=== PATIENT | male | born 1955 | race Caucasian/White ===

== ENCOUNTER 2025-05-16 02:18 | Inpatient (IN) ==
[2025-05-16] MEDS: KETOROLAC 15 MG/ML VIAL IVP STA (03:27)
[2025-05-16 03:29] LABS: HCT - HEMATOCRIT 37.1 % (42.0-52.0); HGB - HEMOGLOBIN 12.5 g/dL (14.0-18.0); MEAN PLATELET VOLUME 9.8 fL (7.4-11.4); NRBC ABSOLUTE COUNT (AUTO) 0.00 x10^3/uL; NUCLEATED RED BLOOD CELLS AUTO 0.0 /100WBC; PLT - PLATELET COUNT 145 10^3/uL (130-450); RED CELL DISTRIBUTION WIDTH 13.6 % (12.0-15.0)
[2025-05-16 03:44] LABS: ALT ALANINE AMINOTRANSFERASE 14.0 IU/L (10-60); AST ASPARTATE AMINOTRANSFERASE 15.0 IU/L (10-42); BUN - BLOOD UREA NITROGEN 25.0 mg/dL (6-20); CARBON DIOXIDE - CO2 24.0 mmol/L (21-32); CREATININE 1.3 mg/dL (0.6-1.3); GFR - MDRD 55.0 (>89)
[2025-05-16 03:53] LABS: GLUCOSE, URINE (UA) NEGATIVE (NEGATIVE); KETONES,URINE (UA) TRACE mg/dL (NEGATIVE); OCCULT BLOOD,URINE MODERATE (NEGATIVE)
[2025-05-16 04:10] LABS: SQUAMOUS EPITHELIAL CELL,UR FEW Squamous (<= Few)
[2025-05-16] MEDS: oxyCODONE 5 MG TABLET PO STA (06:40)
--- NOTE | 2025-05-16 07:29 | ED Physician Documentation ---
History of Present Illness Stated complaint Stated Complaint: back pain/nausea Chief complaint Chief Complaint: Back Pain Additonal information Additional information: 69-year-old male presenting with persistent back pain over the last few days, back spasms. States that he is having difficulty ambulating around his house, and has had trouble going up and down his stairs. He states that he and his are both concerned for his wellbeing considering his episodes of intractable pain. He states that they seem to come and go. Required EMS to bring him in today. He denies any traumatic history to his back, denies history of back pain prior to this. He denies fever, chills, chest pain, shortness of breath. States that when his pain is significant he does feel nauseous. Denies any abdominal pain. Seems to endorse left-sided flank pain as well, denies a chronic history of chronic obstruction, for which she follows with urology. Does endorse history of significant BPH. Denies any dysuria, other urination changes. Denies bowel movement problems. Denies cauda equina symptoms. Review of Systems Status of ROS: See HPI Meds/Allgy Home Medications Ambulatory Orders Medication Instructions Recorded Confirmed No Known Home Medications 05/16/2505/04 Allergies Allergies Allergy/AdvReac Type Severity Reaction Status Date / Time albumin colloid, human Allergy Severe Edema Verified 05/16/25 02:27 [facility] Active Problems All Active Problems (Updated 05/16/25 @ 07:29 by Asael Perea MD) Acute pain (Acute) Social History Social History Smoking Status: Smoker current status unk Level: Independent Do you feel safe in your home environment?: Yes History of physical, verbal, emotional, or financial abuse?: No Substance Use: cannabis (any form) Exam Exam Vital Signs: Vital Signs x48h Temp Pulse Resp BP Pulse Ox 05/16/25 07:40 59 L 18 118/67 95 05/16/25 06:26 56 L 18 111/61 93 05/16/25 02:24 36.6 C 62 18 123/69 98 Constitutional Appears moderately uncomfortable intermittently. Waves of pain. Intermittently writhing on bed. HENMT normocephalic Eyes PERRL and conjunctivae normal Neck/C-Spine visual inspection normal, cervical spine nontender, cervical full ROM noted and supple Respiratory breath sounds equal bilaterally, normal respiratory effort and no wheezes Cardiovascular normal heart rate noted, regular rhythm noted, no murmur and peripheral pulses 2+ throughout Gastrointestinal abdomen soft to palpation and nontender to palpation Genitourinary Left-sided CVA tenderness positive, no right sided CVA tenderness Back/Pelvis Tenderness to palpation in lower lumbar spine/sacral spine. No step-offs, no deformities, no overlying skin changes. Neurology GCS 15 Psychiatry mental status grossly normal and oriented x3 Results Vitals Vitals: Vital Signs - 24 hr 05/16/25 02:24 05/16/25 03:27 05/16/25 06:26 Temperature 36.6 C Temperature Source Temporal Artery Scan Pulse Rate 62 56 L Respiratory Rate 18 18 Blood Pressure 123/69 111/61 O2 Saturation 98 93 O2 Source Room air Room air Pain Intensity 10 10 2 05/16/25 06:40 05/16/25 07:40 05/16/25 08:04 Temperature Temperature Source Pulse Rate 59 L Respiratory Rate 18 Blood Pressure 118/67 O2 Saturation 95 O2 Source Room air Pain Intensity 8 7 7 05/16/25 08:05 Temperature Temperature Source Pulse Rate Respiratory Rate Blood Pressure O2 Saturation O2 Source Pain Intensity 7 Oxygen O2 Source Room air Labs Labs: Laboratory Tests 05/16/25 05/16/25 03:00 03:23 WBC 8.2 RBC 3.89 L Hgb 12.5 L Hct 37.1 L MCV 95.4 H MCH 32.1 H MCHC 33.7 RDW 13.6 Plt Count 145 MPV 9.8 Neut # (Auto) 6.8 H Lymph # (Auto) 0.7 L Lee # (Auto) 0.6 Eos # (Auto) 0.0 Baso # (Auto) 0.0 Absolute Nucleated RBC 0.00 Nucleated RBC % 0.0 Sodium 137 Potassium 4.2 Chloride 104 Carbon Dioxide 24 Anion Gap 9.0 BUN 25 H Creatinine 1.3 Estimated GFR (MDRD) 55 L Glucose 156 H Calcium 9.2 Total Bilirubin 1.2 H AST 15 ALT 14 Alkaline Phosphatase 97 Total Protein 6.5 Albumin 3.7 Globulin 2.8 Albumin/Globulin Ratio 1.3 Lipase 42 Urine Color YELLOW Urine Clarity HAZY Urine pH 6.0 Ur Specific [place] 1.025 Urine Protein TRACE Urine Glucose (UA) NEGATIVE Urine Ketones TRACE Urine Occult Blood MODERATE Urine Nitrite NEGATIVE Urine Bilirubin NEGATIVE Urine Urobilinogen 0.2 (NORMAL) Ur Leukocyte Esterase SMALL H Urine RBC 11-25 H Urine WBC 11-25 H Ur Squamous Epith Cells FEW Squamous Urine Bacteria Few Urine Mucus Few Strands Ur Microscopic Review INDICATED Urine Culture Comments INDICATED PD Medical Decision Making ED course ED course: Assessment: 6-year-old male presenting to the ER for second times week for intractable back pain, with waves of pain in his left flank, lumbar territory. He has never had symptoms like his before, but states that he is exasperated, and does not know what to do. He was discharged after evaluation from the ER yesterday with pain medications, but states that these have not helped. DDx: Includes was not limited to, sciatica, kidney stone, hydronephrosis, septic stone, UTI, lumbar disc herniation, musculoskeletal back pain, SI joint dysfunction, etc. Workup: CBC shows hemoglobin 12.5, no leukocytosis. CMP with BUN 25, T. bili of 1.2. Otherwise labs unremarkable. Urine studies with negative nitrites, small leukocyte esterase, presence of RBCs, presence of WBCs. CT lumbar spine shows areas of mild disc herniation L3-L4, L4-L5. No evidence of fracture, or other significantly acute injury. CT abdomen shows evidence of successful TIPS procedure, cholelithiasis. There is no evidence of renal infarct, renal stone, hydronephrosis. Treatment: Oxycodone 5 mg, Toradol 15 mg, Valium 5 mg Discussion: I do not have a convincing reason for this patient's pain based off of my imaging and workup today. However he is quite intractable, and despite multiple pain options, still has significant waves where patient appears very uncomfortable, and in pain. Muscle relaxer is not overly helpful, anti- inflammatories did not help very much. He does not have any focal neurologic deficits on my exam, though patient states that he cannot walk, and has significant concerns about returning home. Because of this and his repeat visit to the ER with persistence of symptoms yet to be explained, I discussed his presentation with hospitalist service, who will agree to admit him to obtain MRI to hopefully establish more definitive diagnosis. Additionally benefit of admission would be pain control. Patient was understanding of this and agreeable with plan moving forward. At time of my signout patient was in admission status awaiting transfer to the floor. He was signed out to Dr. Russ Briseno, at my signout. Discharge Plan Discharge Patient Disposition: [facility] DC/Xfer Condition: Good Clinical Impression: Acute pain Interventions: ED Admission Assessment Last Done: 05/16/25 08:19 Vitals documented within 30 minutes of discharge?: Yes
[2025-05-16] MEDS ORDERED: ONDANSETRON 4 MG/2 ML VIAL IVP PRN (08:02)
[2025-05-16] MEDS ORDERED: SODIUM CHLORIDE FLUSH 0.9% 10 ML SYRINGE IVP PRN (08:02)
[2025-05-16] MEDS: HYDROcod/ACETAM 5/325 MG TABLET PO PRN (08:43)
--- NOTE | 2025-05-16 09:32 | HISTORY & PHYSICAL EXAMINATION ---
Chief Complaint Chief Complaint Chief Complaint: Intractable back pain History of Present Illness Admitted From Admitted From:: Home History Obtained From Records Reviewed: EMR History obtained from: Patient Exam Limitations: None History of Present Illness HPI Comment/Other: Patient is a 69-year-old gentleman with a history of BPH, depression, chronic back pain, who presents with intractable back pain. He states it started about 2 days ago, and has progressed. It presents as intense spasms located in the midline of his back, with radiation over to the right or left side of his back. At times, it does present with numbness and tingling down his legs. It never radiates down towards the groin. He denies any bowel incontinence or saddle anesthesia. Prior to the onset of this intense back pain, he did have chronic back pain, which he states was relieved with Excedrin at home. He has never seen a neurologist, nor has he had any spinal or back surgeries in the past. Prior to the onset of this new acute pain, he states that he has been exceptionally active around the house. Him and his are remodeling a house, and they have been working on this for the past year. He does recall lifting some heavy wood prior to the onset of this knee pain. He presented initially a couple days ago, and then went home, and then returned again as the back pain persisted and became more severe and more frequent in nature. He has never had a kidney stone in the past. He has chronic urinary issues with BPH. He recently saw urology for this in the outpatient setting, and was prescribed medications for this. He still struggles with incomplete emptying, but these are chronic issues for him. He denies any fevers or chills. He denies shortness of breath. Other medical problems includes a history of atrial fibrillation on Eliquis. He has a pacemaker in place as well. 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 Diet: Regular, NPO at midnight Dispo: Likely home on discharge DVT: Eliquis Code: DNR, okay for intubation if temporary Meds/Allgy Home Medications Ambulatory Orders Medication Instructions Recorded Confirmed alfuzosin 10 mg tablet,extended 10 mg PO DAILY 5 05/16/25 release 24 hr Held on 05/16/25. Instructions: NEW RX HASN'T STARTED OF 05/16/25 allopurinol 100 mg tablet 100 mg PO QPM 05/16/2505/16 apixaban 5 mg tablet (Eliquis) 5 mg PO BID 05/16/25 atorvastatin 20 mg tablet 20 mg PO QPM 05/16/25 bupropion HCl 300 mg 24 hr tablet, 300 mg PO QPM 05/1605/16/25 extended release citalopram 10 mg tablet 10 mg PO QPM 05/16/25 metoprolol succinate 50 mg 50 mg PO BID 05/16/2505/16 tablet,extended release 24 hr prazosin 1 mg capsule 1 mg PO QPM 05/16/25 5 Allergies Allergies Allergy/AdvReac Type Severity Reaction Status Date / Time albumin colloid, human Allergy Severe Edema Verified 05/16/25 02:27 [facility] Active Problems All Active Problems (Updated 05/17/25 @ 13:13 by Myron Adams MD) Atrial fibrillation (Chronic) Depression (Chronic) BPH (benign prostatic hyperplasia) (Acute) Intractable back pain (Acute) Acute pain (Acute) Social History Social History Smoking Status: Smoker current status unk Level: Independent Do you feel safe in your home environment?: Yes History of physical, verbal, emotional, or financial abuse?: No Substance Use: cannabis (any form) POLST Patient has POLST: No POLST CPR Status: Do Not Attempt Resuscitation (DNAR) / Allow Natural Review of Systems Constitutional Denies: Fatigue, Fever, Chills, Malaise, Weakness or Poor appetite Eyes Denies: Pain, Irritation, Blurry vision, Vision loss, Diplopia or Eye discomfort Ears, nose, mouth, and throat Denies: Ear pain, Hearing loss, Tinnitus, Nose bleeds, Nasal discharge, Mouth lesions, Bleeding gums or Neck pain Cardiovascular Denies: Irregular heart rate, chest pain, palpitations, edema, Syncope or shortness of breath with exertion Respiratory Denies: Shortness of breath, Cough, Sputum production or Wheezing Gastrointestinal Denies: Abdominal pain, Abdominal distention, Nausea, Vomiting, Heartburn, Diarrhea or Constipation Genitourinary Denies: Painful urination, Urinary frequency or Urinary urgency Musculoskeletal Denies: Back pain, Neck pain, Extremity pain, Extremity swelling or Joint pain Integumentary/Breast Denies: Rash, Itching, Dryness, Redness or Skin pain Neurological Denies: Headache, General weakness, Weakness in extremities, Numbness in extremities, Abnormal gait or Dizziness Psychiatric Denies: Depression, Anxiety, Mood swings or Panic attacks Endocrine Denies: Excessive urination, Excessive thirst or Fatigue Hematologic/Lymphatic Denies: Anemia, Easy bruising or Easy bleeding Allergic/Immunologic Denies: Hives, Tongue swelling, Facial swelling or Wheezing Exam Exam Vital Signs: Vital Signs x48h Temp Pulse Resp BP Pulse Ox 05/17/25 08:05 97.9 F 62 18 135/76 H 92 05/17/25 05:32 97.7 F 61 18 138/76 H 92 Conclusion/Plan Problem List (1) Intractable back pain: Plan: Patient presented with severe and intractable back pain. Lumbar spine CT does show moderate degenerative disc disease, prominent at the lumbosacral junction. Abdomen/pelvis CT shows 1.8 x 1.1 cm stone at the left ureteropelvic junction with some periureteral inflammation noted. Pain is described as intermittent and severe. There is radiation down the legs, as well as towards the front, the stomach. It is localized in the midline with radiation bilaterally. Unclear if this is MSK pain versus pain from this renal stone. At this time, continue pain control with scheduled NSAIDs, ibuprofen 600 every 6 hours. Continue antispasmodic as needed for cramping, baclofen 10 mg 3 times daily. Continue morphine for severe pain, [place] for moderate pain. No urological services until Sunday. This pain may be attributed to this renal stone, which due to symptoms and size may need to be removed. Spoke with urology, and they will consult on this patient then if patient is still here. In the meantime, if pain is not controlled, we will try to transfer the patient to a facility with urology. (2) BPH (benign prostatic hyperplasia): Plan: Continue home medication, prazosin. Bladder protocol in place, patient does have a history of retaining urine and has had to be straight catheterized in the past. No saddle anesthesia, bowel incontinence. Patient has a long and chronic history of urinary issues. Qualifiers: Lower urinary tract symptom detail: unspecified Lower urinary tract symptom presence: symptoms present Qualified Code(s): N40.1 - Benign prostatic hyperplasia with lower urinary tract symptoms (3) Depression: Plan: Continue home citalopram and Wellbutrin. Qualifiers: Depression Type: unspecified Qualified Code(s): F32.A - Depression, unspecified (4) Atrial fibrillation: Plan: Continue patient's home Eliquis, metoprolol. Qualifiers: Atrial fibrillation type: unspecified Qualified Code(s): I48.91 - Unspecified atrial fibrillation Lab Results Lab results reviewed: Yes 05/17/25 04:20 05/17/25 04:20 Diagnostic Imaging Results Diagnostic Imaging Results: positive Final report reviewed Core Measures Anticipated LOS I expect patient to be DC'd or transferred within 96 hours.: Yes DVT/VTE - Prophylaxis VTE/DVT Device ordered at admit?: No Not Ordered - Medical Reason: Not indicated VTE/DVT Prophylaxis med ordered at admit?: Yes
[2025-05-16] MEDS: SODIUM CHLORIDE FLUSH 0.9% 10 ML SYRINGE IVP SCH (10:06)
--- NOTE | 2025-05-16 10:11 | PHARMACY PROGRESS NOTE ---
Best Possible Medication History Admit Date and Time: 05/16/25 275002 Home Medications Medication Instructions Recorded Confirmed Type alfuzosin 10 mg tablet,extended 10 mg PO DAILY 5 05/16/25 History release 24 hr Held on 05/16/25. Instructions: NEW RX HASN'T STARTED OF 05/16/25 allopurinol 100 mg tablet 100 mg PO QPM 05/16/2505/16 History apixaban 5 mg tablet (Eliquis) 5 mg PO BID 05/16/25 History atorvastatin 20 mg tablet 20 mg PO QPM 05/16/25 History bupropion HCl 300 mg 24 hr tablet, 300 mg PO QPM 05/1605/16/25 History extended release citalopram 10 mg tablet 10 mg PO QPM 05/16/25 History metoprolol succinate 50 mg 50 mg PO BID 05/16/2505/16 History tablet,extended release 24 hr prazosin 1 mg capsule 1 mg PO QPM 05/16/25 5 History Processed by: Pharmacy Medications reviewed in ED?: No Medication History completed: Yes Patient Interview: Completed Secondary Source(s): Prescription bottles, Spouse/Significant other, Pharmacy records and Insurance records [facility] Statement: As the person ultimately responsible for medication therapy, providers are able to order a medication from an existing home medication list in [facility] via the "Reconcile Routine" prior to Confirmation of that medication by computer network support specialist. Such practice is discouraged except when the physician, in their clinical judgment, deems that a medical need exists for a medication without regard to previous use.
[2025-05-16] MEDS: BACLOFEN 10 MG TABLET PO PRN (10:37)
--- NOTE | 2025-05-16 10:46 | CT Report ---
PROCEDURE: CT Abdomen/Pelvis WO INDICATIONS: concern for kidney stone TECHNIQUE: A CT scan of the abdomen and pelvis was performed without the use of intravenous contrast. Images were recorded and evaluated at appropriate window settings. Reformats: coronal and sagittal. For radiation dose reduction, the following was used: automated exposure control, adjustment of mA and/or kV according to patient size. COMPARISON: None. FINDINGS: Image quality: Diagnostic. Lower chest: Unremarkable. Liver: Cirrhotic without contour-deforming mass. TIPS shunt in place. Gallbladder: Multiple calcified stones without wall thickening or pericholecystic fluid. Contrast in the gallbladder is consistent with vicarious excretion from prior contrast administration. Biliary tree: No intrahepatic or extrahepatic dilation, accounting for age. Spleen: No splenomegaly. Pancreas: No pancreatic ductal dilation. Adrenals: No adrenal nodule. Kidneys and ureters: No hydronephrosis. No contour-deforming mass. Minimal contrast is present in the collecting system and proximal ureters. There is a 1.8 x 1.1 cm rounded stone at the left ureteropelvic junction. No other stone is identified. Stomach, bowel and peritoneum: No gastric or small bowel dilation. No abnormal wall thickening. Lymph nodes: No central or retroperitoneal adenopathy. Vessels: No infrarenal aortic aneurysm. Reproductive organs: A penile implant is in place. There is a small fluid collection without rim enhancement extending from the proximal right inguinal canal into the pelvis about the right-sided pump.. Bladder: No abnormal bladder wall thickening. No calcified bladder stones. Pelvic lymph nodes: No adenopathy by size criteria. Bones: No aggressive osseous abnormality. See same-day lumbar spine report. Other: No significant ventral or inguinal hernia. IMPRESSION: Left ureteropelvic junction stone without evidence of obstruction. Mild left periureteral inflammation on the left. Correlate with urinalysis. Right pelvic fluid collection extending into the proximal inguinal canal adjacent to the implant component. There is no associated inflammation to suggest an infectious component, although this is not excluded. Reviewed by: Navya Perales MD on 05/16/2025 9:45 AM R[facility]EL Approved by: Navya Perales MD on 05/16/2025 9:45 AM [facility] Station ID: [id number]
--- NOTE | 2025-05-16 10:49 | CT Report ---
PROCEDURE: CT Lumbar Spine WO INDICATIONS: significant lumbar back pain TECHNIQUE: Noncontrast images acquired from the T12 level to the sacrum. Sagittal and coronal reformats were constructed. For radiation dose reduction, the following was used: automated exposure control, adjustment of mA and/or kV according to patient size. COMPARISON: Same day abdomen and pelvis CT. FINDINGS: Image quality: Excellent. Bones: There is normal bony alignment. Mild dextrocurvature is likely positional. No acute vertebral body compression fractures. No suspicious lytic or blastic bony lesions. Central spinal caliber is of normal overall caliber. No pars defects. Disc space narrowing with osteophytosis is seen at the lumbosacral junction with a likely component of disc herniation. Mild osteophytes are seen throughout the remainder of the lumbar spine. Soft tissues: The same day abdomen/pelvis CT report. IMPRESSION: Mild to moderate degenerative disc disease, most prominent at the lumbosacral junction. No acute osseous abnormality. Reviewed by: Navya Perales MD on 05/16/2025 9:47 AM [facility] Approved by: Navya Perales MD on 05/16/2025 9:47 AM R[facility]HAEL Station ID: [id number]
[2025-05-16] MEDS: diazePAM INJ 5 MG/ML SYRINGE IVP ONE (12:14)
[2025-05-16] MEDS: IBUPROFEN 600 MG TABLET PO SCH (12:14)
[2025-05-16] MEDS: LACTATED RINGERS 1,000 ML IV SCH (12:15)
[2025-05-16] MEDS: MORPHINE 2 MG/ML CARPUJECT IVP PRN (15:00)
[2025-05-16] MEDS: ACETAMINOPHEN 325 MG TABLET PO PRN (17:38)
[2025-05-16] MEDS: APIXABAN 5 MG TABLET PO SCH (22:26)
[2025-05-16] MEDS: CITALOPRAM 10 MG TABLET PO SCH (22:26)
[2025-05-16] MEDS: ATORVASTATIN 10 MG TABLET PO SCH (22:28)
[2025-05-16] MEDS: PRAZOSIN 1 MG CAPSULE PO SCH (22:30)
[2025-05-16] MEDS: METOPROLOL SUCCINATE 50 MG TABLET PO SCH (22:32)
[2025-05-17 04:26] LABS: HCT - HEMATOCRIT 35.1 % (42.0-52.0); HGB - HEMOGLOBIN 11.7 g/dL (14.0-18.0); MEAN PLATELET VOLUME 9.6 fL (7.4-11.4); PLT - PLATELET COUNT 112.0 10^3/uL (130-450); RED CELL DISTRIBUTION WIDTH 13.7 % (12.0-15.0)
[2025-05-17 04:47] LABS: BUN - BLOOD UREA NITROGEN 25.0 mg/dL (6-20); CARBON DIOXIDE - CO2 27.0 mmol/L (21-32); CREATININE 1.3 mg/dL (0.6-1.3); GFR - MDRD 55.0 (>89)
[2025-05-17] MEDS: SENNA 8.6 MG TABLET PO SCH (08:13)
[2025-05-17] MEDS ORDERED: ENOXAPARIN 40 MG/0.4 ML SYRINGE SUBQ SCH (09:00)
[2025-05-17] MEDS: BISACODYL 10 MG SUPP PR STA (12:04)
--- NOTE | 2025-05-17 12:35 | PROVIDER PROGRESS NOTE ---
Subjective Subjective Subjective: Patient is feeling better today. He feels like his pain is under much better control with the scheduled Motrin. He only required the IV morphine once in the last 24 hours. He is still having the episodes of intermittent sharp pain, but they are decreasing in frequency. He denies any fevers or chills. Overnight, he continued to have urinary incontinence and retention, and a urinary catheter was placed. Diet: Regular, NPO at midnight for planned urological procedure Dispo: Likely home on discharge DVT: Eliquis Code: DNR, afuaay for intubation if temporary Current Medications Current Medications Current Medications: Current Medications Generic Name Dose Route Start Last Admin Trade Name Freq PRN Reason Stop Dose Admin Acetaminophen 650 mg 05/16/25 08:02 05/16/25 17:38 Acetaminophen 325 Mg Tablet PO 650 mg Q4HR PRN Administration Pain 1 to 4, or Fever Hydrocodone Bitart/Acetaminophen 1 tab 05/16/25 08:02 05/17/25 03:50 Hydrocod/Acetam 5/325 Mg Tablet PO 1 tab Q4HR PRN Administration Pain 5 to 7 Allopurinol 100 mg 05/16/25 21:00 05/16/25 22:28 Allopurinol 100 Mg Tablet PO 100 mg QPM KARON Administration Amoxicillin 500 mg 05/17/25 14:00 Amoxicillin 250 Mg Capsule PO TID KARON Apixaban 5 mg 05/16/25 21:00 05/17/25 08:13 Apixaban 5 Mg Tablet PO 5 mg BID KARON Administration Atorvastatin Calcium 20 mg 05/16/25 21:00 05/16/25 22:28 Atorvastatin 10 Mg Tablet PO 20 mg QPM KARON Administration Baclofen 10 mg 05/16/25 09:48 05/17/25 08:13 Baclofen 10 Mg Tablet PO 10 mg TID PRN Administration spasm Bupropion HCl 300 mg 05/16/25 21:00 05/16/25 22:27 Bupropion Xl 150 Mg Tablet PO 300 mg QPM KARON Administration Citalopram Hydrobromide 10 mg 05/16/25 21:00 05/16/25 22:26 Citalopram 10 Mg Tablet PO 10 mg QPM KARON Administration Lactated Ringer's 1,000 mls @ 83.333 mls/hr 05/16/25 13:00 05/17/25 12:04 Lr IV 83.3 mls/hr .Q12H KARON Administration Ibuprofen 600 mg 05/16/25 12:00 05/17/25 11:30 Ibuprofen 600 Mg Tablet PO 600 mg Q6HR KARON Administration Metoprolol Succinate 50 mg 05/16/25 21:00 05/17/25 08:13 Metoprolol Succinate 50 Mg Tablet PO 50 mg BID KARON Administration Morphine Sulfate 2 mg 05/16/25 13:38 05/16/25 18:59 Morphine 2 Mg/Ml Carpuject IVP 2 mg Q4HR PRN Administration Severe Pain (Level 7-10) Ondansetron HCl 4 mg 05/16/25 08:02 Ondansetron Odt 4 Mg Tablet TL Q6HR PRN Nausea / Vomiting Ondansetron HCl 4 mg 05/16/25 08:02 Ondansetron 4 Mg/2 Ml Vial IVP Q6HR PRN Nausea / Vomiting Polyethylene Glycol 17 gm 05/16/25 17:00 05/17/25 08:13 Polyethylene Glycol 3350 17 Gm Packet PO 17 gm DAILY KARON Administration Prazosin HCl 1 mg 05/16/25 21:00 05/16/25 22:30 Prazosin 1 Mg Capsule PO 1 mg QPM KARON Administration Senna 17.2 - 25.8 mg 05/17/25 08:00 05/17/25 08:13 Senna 8.6 Mg Tablet PO 05/18/25 02:01 17.2 mg Q6H KARON Administration Sodium Chloride 10 ml 05/16/25 08:02 Sodium Chloride Flush 0.9% 10 Ml Syringe IVP PRN PRN NEEDED PER PROVIDER ORDERS Sodium Chloride 10 ml 05/16/25 09:00 05/17/25 08:14 Sodium Chloride Flush 0.9% 10 Ml Syringe IVP 10 ml 0100,[id number],1700 KARON Administration Objective Vital Signs/Intake & Output Reviewed Vital Signs: Yes Vital Signs: Vital Signs x48h Temp Pulse Resp BP Pulse Ox 05/17/25 08:05 97.9 F 62 18 135/76 H 92 05/17/25 05:32 97.7 F 61 18 138/76 H 92 Intake & Output: Intake & Output 05/14/25 05/15/25 05/16/25 05/17/25 23:59 23:59 23:59 23:59 Intake Total 900 / 900 1983 Output Total 835 / 835 1000 / 1000 Balance 65 / 65 984 / 984 Weight (kg) 105.5 kg Objective General Appearance: positive No acute distress and Alert; negative Anxious Eyes Bilateral: positive Normal inspection, PERRL and EOMI ENT: positive ENT inspection nml, Pharynx nml and No signs of dehydration Neck: positive Nml inspection, Thyroid nml and No JVD Respiratory: positive Chest non-tender, No respiratory distress and Breath sounds nml; negative Wheezes, Rales or Rhonchi Cardiovascular: positive No murmur, No gallop and Irregularly irregular; negative Tachycardia or Systolic murmur Abdomen: positive Non-tender, No organomegaly and No distention; negative Guarding or Splenomegaly Back: positive Nml inspection; negative CVA tenderness (R) or CVA tenderness (L) Skin: positive Color nml, No rash, Warm and Dry Extremities: positive Non-tender, Full ROM, Nml appearance and No pedal edema Neurologic/Psychiatric: positive Oriented x3, Motor nml and Mood/affect nml Comments/Other: No point tenderness noted no paraspinal muscle tenderness noted, Wan sign negative bilaterally; straight leg test negative bilaterally Lab Results 05/17/25 04:20 05/17/25 04:20 Other Labs: Lab Results x24hrs 05/17/25 Range/Units 04:20 WBC 6.0 (4.8-10.8) x10^3/uL RBC 3.63 L (4.70-6.10) 10^6/uL Hgb 11.7 L (14.0-18.0) g/dL Hct 35.1 L (42.0-52.0) % MCV 96.7 H (80.0-94.0) fL MCH 32.2 H (27.0-31.0) pg MCHC 33.3 (32.0-36.0) g/dL RDW 13.7 (12.0-15.0) % Plt Count 112 L (130-450) 10^3/uL MPV 9.6 (7.4-11.4) fL Sodium 138 (135-145) mmol/L Potassium 3.8 (3.5-4.5) mmol/L Chloride 104 (101-111) mmol/L Carbon Dioxide 27 (21-32) mmol/L Anion Gap 7.0 (6-13) BUN 25 H (6-20) mg/dL Creatinine 1.3 (0.6-1.3) mg/dL Estimated GFR (MDRD) 55 L (>89) Glucose 137 H (74-104) mg/dL Calcium 8.5 (8.5-10.3) mg/dL Magnesium 1.8 (1.7-2.3) mg/dL Assessment/Plan Problem List (1) Intractable back pain: Impression: Patient presented with severe and intractable back pain. Lumbar spine CT does show moderate degenerative disc disease, prominent at the lumbosacral junction. Abdomen/pelvis CT shows 1.8 x 1.1 cm stone at the left ureteropelvic junction with some periureteral inflammation noted. Pain is described as intermittent and severe. There is radiation down the legs, as well as towards the front, the stomach. It is localized in the midline with radiation bilaterally. Unclear if this is MSK pain versus pain from this renal stone. At this time, continue pain control with scheduled NSAIDs, ibuprofen 600 every 6 hours. Continue antispasmodic as needed for cramping, baclofen 10 mg 3 times daily. Continue morphine for severe pain, [place] for moderate pain. No urological services until Sunday. This pain may be attributed to this renal stone, which due to symptoms and size may need to be removed. Spoke with urology, and they will consult on this patient then. (2) Renal stone: Impression: Abdomen/pelvis CT shows 1.8 x 1.1 cm stone at the left ureteropelvic junction with some periureteral inflammation noted. Plan for urology consultation tomorrow morning. Hold evening and morning Eliquis doses, n.p.o. at midnight in case of procedure. (3) Enterococcus UTI: Impression: Urine culture growing Enterococcus. Patient did require urinary catheter placement overnight for incontinence. He does not have any dysuria, but he does have feelings of incomplete emptying and incontinence. Will treat as a simple cystitis with 5 days of amoxicillin 500 mg 3 times daily, especially with planned urological procedure. (4) Acute urinary retention: Impression: Overnight, patient was retaining over 400 cc of urine. Urinary catheter was placed. Urology has been consulted. (5) BPH (benign prostatic hyperplasia): Impression: Continue home medication, prazosin. Qualifiers: Lower urinary tract symptom detail: unspecified Lower urinary tract symptom presence: symptoms present Qualified Code(s): N40.1 - Benign prostatic hyperplasia with lower urinary tract symptoms (6) Depression: Impression: Continue home citalopram and Wellbutrin. Qualifiers: Depression Type: unspecified Qualified Code(s): F32.A - Depression, unspecified (7) Atrial fibrillation: Impression: Continue patient's home Eliquis, metoprolol. Qualifiers: Atrial fibrillation type: unspecified chronic Qualified Code(s): I48.20 - Chronic atrial fibrillation, unspecified
[2025-05-17] MEDS: AMOXICILLIN 250 MG CAPSULE PO SCH (14:13)
[2025-05-18 05:18] LABS: HCT - HEMATOCRIT 34.2 % (42.0-52.0); HGB - HEMOGLOBIN 11.9 g/dL (14.0-18.0); MEAN PLATELET VOLUME 10.3 fL (7.4-11.4); PLT - PLATELET COUNT 139.0 10^3/uL (130-450); RED CELL DISTRIBUTION WIDTH 13.4 % (12.0-15.0)
[2025-05-18 05:33] LABS: BUN - BLOOD UREA NITROGEN 18.0 mg/dL (6-20); CARBON DIOXIDE - CO2 26.0 mmol/L (21-32); CREATININE 1.0 mg/dL (0.6-1.3); GFR - MDRD 74.0 (>89)
--- NOTE | 2025-05-18 07:34 | PROVIDER PROGRESS NOTE ---
Subjective Subjective Subjective: Patient is frustrated at his level of pain. He is looking forward to pain relief after ureteral stent placement. He only required the IV morphine once in the last 24 hours. He is still having the episodes of intermittent sharp pain, but they are decreasing in frequency. He denies any fevers or chills. Yesterday, he continued to have urinary incontinence and retention, and a urinary catheter was placed. Diet: NPO currently for procedure today; can resume regular diet after Dispo: Likely home on discharge DVT: Eliquis (held this A.M. for procedure) Code: DNR, okay for intubation if temporary Current Medications Current Medications Current Medications: Current Medications Generic Name Dose Route Start Last Admin Trade Name Freq PRN Reason Stop Dose Admin Acetaminophen 650 mg 05/16/25 08:02 05/16/25 17:38 Acetaminophen 325 Mg Tablet PO 650 mg Q4HR PRN Administration Pain 1 to 4, or Fever Hydrocodone Bitart/Acetaminophen 1 tab 05/16/25 08:02 05/17/25 21:12 Hydrocod/Acetam 5/325 Mg Tablet PO 1 tab Q4HR PRN Administration Pain 5 to 7 Allopurinol 100 mg 05/16/25 21:00 05/17/25 21:10 Allopurinol 100 Mg Tablet PO 100 mg QPM KARON Administration Amoxicillin 500 mg 05/17/25 14:00 05/18/25 05:39 Amoxicillin 250 Mg Capsule PO 500 mg TID KARON Administration Atorvastatin Calcium 20 mg 05/16/25 21:00 05/17/25 21:12 Atorvastatin 10 Mg Tablet PO 20 mg QPM KARON Administration Baclofen 10 mg 05/16/25 09:48 05/17/25 23:47 Baclofen 10 Mg Tablet PO 10 mg TID PRN Administration spasm Bupropion HCl 300 mg 05/16/25 21:00 05/17/25 21:10 Bupropion Xl 150 Mg Tablet PO 300 mg QPM KARON Administration Citalopram Hydrobromide 10 mg 05/16/25 21:00 05/17/25 21:10 Citalopram 10 Mg Tablet PO 10 mg QPM KARON Administration Lactated Ringer's 1,000 mls @ 83.333 mls/hr 05/16/25 13:00 05/17/25 23:50 Lr IV 83.3 mls/hr .Q12H KARON Administration Ibuprofen 600 mg 05/16/25 12:00 05/18/25 05:39 Ibuprofen 600 Mg Tablet PO 600 mg Q6HR KARON Administration Metoprolol Succinate 50 mg 05/16/25 21:00 05/17/25 21:11 Metoprolol Succinate 50 Mg Tablet PO 50 mg BID KARON Administration Morphine Sulfate 2 mg 05/16/25 13:38 05/17/25 23:48 Morphine 2 Mg/Ml Carpuject IVP 2 mg Q4HR PRN Administration Severe Pain (Level 7-10) Ondansetron HCl 4 mg 05/16/25 08:02 Ondansetron Odt 4 Mg Tablet TL Q6HR PRN Nausea / Vomiting Ondansetron HCl 4 mg 05/16/25 08:02 Ondansetron 4 Mg/2 Ml Vial IVP Q6HR PRN Nausea / Vomiting Polyethylene Glycol 17 gm 05/16/25 17:00 05/17/25 08:13 Polyethylene Glycol 3350 17 Gm Packet PO 17 gm DAILY KARON Administration Prazosin HCl 1 mg 05/16/25 21:00 05/17/25 21:12 Prazosin 1 Mg Capsule PO 1 mg QPM KARON Administration Sodium Chloride 10 ml 05/16/25 08:02 Sodium Chloride Flush 0.9% 10 Ml Syringe IVP PRN PRN NEEDED PER PROVIDER ORDERS Sodium Chloride 10 ml 05/16/25 09:00 05/17/25 23:50 Sodium Chloride Flush 0.9% 10 Ml Syringe IVP 10 ml 0100,0900,1700 KARON Administration Objective Vital Signs/Intake & Output Reviewed Vital Signs: Yes Vital Signs: Vital Signs x48h Temp Pulse Resp BP Pulse Ox 05/17/25 08:05 97.9 F 62 18 135/76 H 92 05/17/25 05:32 97.7 F 61 18 138/76 H 92 Intake & Output: Intake & Output 05/15/25 05/16/25 05/17/25 05/18/25 23:59 23:59 23:59 23:59 Intake Total 900 / 900 2964 / 2964 Output Total 835 / 835 2375 / 2375 750 / 750 Balance 65 / 65 589 / 589 -750 / -750 Weight (kg) 105.5 kg Objective General Appearance: positive No acute distress and Alert; negative Anxious Eyes Bilateral: positive Normal inspection, PERRL and EOMI ENT: positive ENT inspection nml, Pharynx nml and No signs of dehydration Neck: positive Nml inspection, Thyroid nml and No JVD Respiratory: positive Chest non-tender, No respiratory distress and Breath sounds nml; negative Wheezes, Rales or Rhonchi Cardiovascular: positive No murmur, No gallop and Irregularly irregular; negative Tachycardia or Systolic murmur Abdomen: positive Non-tender, No organomegaly and No distention; negative Guarding or Splenomegaly Back: positive Nml inspection; negative CVA tenderness (R) or CVA tenderness (L) Skin: positive Color nml, No rash, Warm and Dry Extremities: positive Non-tender, Full ROM, Nml appearance and No pedal edema Neurologic/Psychiatric: positive Oriented x3, Motor nml and Mood/affect nml Comments/Other: No point tenderness noted no paraspinal muscle tenderness noted, Wan sign negative bilaterally; straight leg test negative bilaterally Lab Results 05/18/25 04:16 05/18/25 04:16 Other Labs: Lab Results x24hrs 05/18/25 Range/Units 04:16 WBC 5.4 (4.8-10.8) x10^3/uL RBC 3.62 L (4.70-6.10) 10^6/uL Hgb 11.9 L (14.0-18.0) g/dL Hct 34.2 L (42.0-52.0) % MCV 94.5 H (80.0-94.0) fL MCH 32.9 H (27.0-31.0) pg MCHC 34.8 (32.0-36.0) g/dL RDW 13.4 (12.0-15.0) % Plt Count 139 (130-450) 10^3/uL MPV 10.3 (7.4-11.4) fL Sodium 137 (135-145) mmol/L Potassium 4.1 (3.5-4.5) mmol/L Chloride 106 (101-111) mmol/L Carbon Dioxide 26 (21-32) mmol/L Anion Gap 5.0 L (6-13) BUN 18 (6-20) mg/dL Creatinine 1.0 (0.6-1.3) mg/dL Estimated GFR (MDRD) 74 L (>89) Glucose 132 H (74-104) mg/dL Calcium 8.6 (8.5-10.3) mg/dL Magnesium 1.8 (1.7-2.3) mg/dL Assessment/Plan Problem List (1) Intractable back pain: Impression: Patient presented with severe and intractable back pain. Lumbar spine CT does show moderate degenerative disc disease, prominent at the lumbosacral junction. Abdomen/pelvis CT shows 1.8 x 1.1 cm stone at the left ureteropelvic junction with some periureteral inflammation noted. Pain is described as intermittent and severe. There is radiation down the legs, as well as towards the front, the stomach. It is localized in the midline with radiation bilaterally. Unclear if this is MSK pain versus pain from this renal stone. At this time, continue pain control with scheduled NSAIDs, ibuprofen 600 every 6 hours. Continue antispasmodic as needed for cramping, baclofen 10 mg 3 times daily. Continue morphine for severe pain, [place] for moderate pain. Urology spoken withplan for ureteral stent today, and then repeat procedure in 1 to 2 weeks to remove large stone. Stent should provide pain relief. Likely will monitor overnight, and discharge home tomorrow if pain is controlled. (2) Renal stone: Impression: Abdomen/pelvis CT shows 1.8 x 1.1 cm stone at the left ureteropelvic junction with some periureteral inflammation noted. Urology spoken withplan for ureteral stent today, and then repeat procedure in 1 to 2 weeks to remove large stone. Hold Eliquis dose this a.m., n.p.o. currently for procedure. (3) Enterococcus UTI: Impression: Urine culture growing Enterococcus, thompson-sensitive. Patient did require urinary catheter placement overnight for incontinence. He does not have any dysuria, but he does have feelings of incomplete emptying and incontinence. Will treat as a simple cystitis with 5 days of amoxicillin 500 mg 3 times daily, especially with planned urological procedure. (4) Acute urinary retention: Impression: Patient was retaining over 400 cc of urine. Urinary catheter was placed. Urology is following, may need to be discharged with [place] in place. (5) BPH (benign prostatic hyperplasia): Impression: Continue home medication, prazosin. Qualifiers: Lower urinary tract symptom detail: unspecified Lower urinary tract symptom presence: symptoms present Qualified Code(s): N40.1 - Benign prostatic hyperplasia with lower urinary tract symptoms (6) Depression: Impression: Continue home citalopram and Wellbutrin. Qualifiers: Depression Type: unspecified Qualified Code(s): F32.A - Depression, unspecified (7) Atrial fibrillation: Impression: Continue patient's home Eliquis, metoprolol. 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
--- NOTE | 2025-05-18 13:46 | HISTORY & PHYSICAL EXAMINATION ---
Chief Complaint Chief Complaint Chief Complaint: left flank pain History of Present Illness Admitted From Admitted From:: er History Obtained From Records Reviewed: emr History obtained from: patient Exam Limitations: none History of Present Illness HPI Comment/Other: 69yo M well known to me with hx of IPP by myself, now with left flank pain. Found to have 1.8cm left UPJ stone. Admitted for pain control. No other vitals concerning Colonoscopy Questionnaire In the last 30 days have you experienced these symptoms? PFSH Active Problems All Active Problems (Updated 05/18/25 @ 09:29 by Magali Dey) Back pain (Acute) Fever (Acute) BPH loc w urin obs/LUTS (Acute) Obstructive sleep apnea of adult (Acute) CKD stage 3a, GFR 45-59 ml/min (Acute) Hyperlipemia (Acute) Prediabetes (Acute) Controlled familial obstructive sleep apnea (Chronic) At high risk for falls (Chronic) Tubular adenoma of colon (Chronic) Peripheral neuropathy, idiopathic (Chronic) Gout, unspecified (Acute) Enterococcus UTI (Acute) Acute urinary retention (Acute) Renal stone (Acute) Atrial fibrillation (Chronic) Depression (Chronic) BPH (benign prostatic hyperplasia) (Acute) Intractable back pain (Acute) Acute pain (Acute) Medical History Medical History (Updated 05/18/25 @ 09:29 by Magali Dey) Pacemaker Colon cancer screening Exertional dyspnea Major depressive disorder, recurrent, mild ALC (alcoholic liver cirrhosis) Chronic cervical pain Cardiac arrhythmia, unspecified Acquired dilation of ascending aorta and aortic root Aortic root 3.9cm 05/26/24 on ECHO Erectile dysfunction Surgical History Surgical History (Updated 05/18/25 @ 09:29 by Magali Dey) History of penile implant History of colonoscopy S/P TIPS (transjugular intrahepatic portosystemic shunt) 2/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 cirrhosis Family History Family History (System 05/18/25 @ 09:29 by Magali Dey) Father Snoring Social History Social History (System 05/18/25 @ 09:29 by Magali Dey) Smoking Status: Smoker current status unk Second hand tobacco smoke exposure: No Do you dip or chew tobacco?: No Do you vape?: No Level: Independent Do you feel safe in your home environment?: Yes History of physical, verbal, emotional, or financial abuse?: No ETOH Use: None Substance Use: cannabis (any form) Substance Use Details: CBD Gummies POLST Patient has POLST: No Meds/Allgy Home Medications Ambulatory Orders Medication Instructions Recorded Confirmed bupropion HCl 300 mg 24 hr tablet, 300 mg PO DAILY 01/2303/10/25 extended release (Wellbutrin XL) citalopram 10 mg tablet 10 mg PO DAILY 08/07/2304/27 allopurinol 100 mg tablet 100 mg PO QDAY #90 tabs 07/0503/10/25 atorvastatin 20 mg tablet (Lipitor) 20 mg PO QDAY #90 tabs 07/28/24 03/10/25 gabapentin 100 mg capsule 100 mg PO TID #270 caps 07/0503/10/25 Held on 08/12/24. Instructions: Per Patient prazosin 1 mg capsule See Rx Instructions .Route 1 10/13/23 03/10/25 .COMPLEX #90 caps alfuzosin 10 mg tablet,extended 10 mg PO HS #30 tabs 0 05/14/25 release 24 hr oxycodone-acetaminophen 5 mg-325 1 - 2 tab PO Q6H PRN pain #14 tabs 05/15/25 mg tablet (Percocet) alfuzosin 10 mg tablet,extended 10 mg PO DAILY 5 05/16/25 release 24 hr Held on 05/16/25. Instructions: NEW RX HASN'T STARTED OF 05/16/25 allopurinol 100 mg tablet 100 mg PO QPM 05/16/2505/16 apixaban 5 mg tablet (Eliquis) 5 mg PO BID 05/16/25 atorvastatin 20 mg tablet 20 mg PO QPM 05/16/25 bupropion HCl 300 mg 24 hr tablet, 300 mg PO QPM 05/1605/16/25 extended release citalopram 10 mg tablet 10 mg PO QPM 05/16/25 metoprolol succinate 50 mg 50 mg PO BID 05/16/2505/16 tablet,extended release 24 hr prazosin 1 mg capsule 1 mg PO QPM 05/16/25 5 Allergies Allergies Allergy/AdvReac Type Severity Reaction Status Date / Time albumin colloid, human Allergy Severe Edema Verified 05/18/25 09:29 Results Lab Results Lab results reviewed: Yes 05/18/25 04:16 05/18/25 04:16 Other Lab Results: Lab Results x24hrs 05/18/25 Range/Units 04:16 WBC 5.4 (4.8-10.8) x10^3/uL RBC 3.62 L (4.70-6.10) 10^6/uL Hgb 11.9 L (14.0-18.0) g/dL Hct 34.2 L (42.0-52.0) % MCV 94.5 H (80.0-94.0) fL MCH 32.9 H (27.0-31.0) pg MCHC 34.8 (32.0-36.0) g/dL RDW 13.4 (12.0-15.0) % Plt Count 139 (130-450) 10^3/uL MPV 10.3 (7.4-11.4) fL Sodium 137 (135-145) mmol/L Potassium 4.1 (3.5-4.5) mmol/L Chloride 106 (101-111) mmol/L Carbon Dioxide 26 (21-32) mmol/L Anion Gap 5.0 L (6-13) BUN 18 (6-20) mg/dL Creatinine 1.0 (0.6-1.3) mg/dL Estimated GFR (MDRD) 74 L (>89) Glucose 132 H (74-104) mg/dL Calcium 8.6 (8.5-10.3) mg/dL Magnesium 1.8 (1.7-2.3) mg/dL Diagnostic Imaging Results Diagnostic Imaging Results: positive Read independently Exam Exam NAD RRR CTA b/l Impression/Plan Problem List (1) Intractable back pain: (2) Renal stone: (3) Enterococcus UTI: Plan: 69yo M with left 1.8cm UPJ stone and pain -add on for cystoscopy left ureteral stent. The risks/benefits/alternatives were discussed. Specific risks of infection/bleeding/injury discussed. He understands will need subsequent procedures to remove the stone -pt consents to above plan (4) Acute urinary retention: (5) BPH (benign prostatic hyperplasia): Qualifiers: Lower urinary tract symptom detail: unspecified Lower urinary tract symptom presence: symptoms present Qualified Code(s): N40.1 - Benign prostatic hyperplasia with lower urinary tract symptoms (6) Depression: Qualifiers: Depression Type: unspecified Qualified Code(s): F32.A - Depression, unspecified (7) Atrial fibrillation: Qualifiers: Atrial fibrillation type: unspecified chronic Qualified Code(s): I48.20 - Chronic atrial fibrillation, unspecified
--- NOTE | 2025-05-18 16:21 | ANESTHESIA PROCEDURE NOTE ---
Pre-Anesthesia VS, & Labs Diagnosis Surgical Diagnosis:: urinary obstruction Procedure Procedure: cysto stent Vitals Vital Signs: Temp Pulse Resp BP Pulse Ox O2 Flow Rate 36.5 C 62 18 137/88 H 93 0 05/18/25 15:59 05/18/25 15:59 05/18/25 15:59 05/18/25 15:59 05/18/25 15:59 05/16/25 12:22 NPO NPO: >8 hours Lab Results Current Lab Results: Laboratory Tests 05/18/25 04:16: WBC 5.4, RBC 3.62 L, Hgb 11.9 L, Hct 34.2 L, MCV 94.5 H, MCH 32.9 H, MCHC 34.8, RDW 13.4, Plt Count 139, MPV 10.3, Sodium 137, Potassium 4.1, Chloride 106, Carbon Dioxide 26, Anion Gap 5.0 L, BUN 18, Creatinine 1.0, E stimated GFR (MDRD) 74 L, Glucose 132 H, Calcium 8.6, Magnesium 1.8 05/17/25 04:20: WBC 6.0, RBC 3.63 L, Hgb 11.7 L, Hct 35.1 L, MCV 96.7 H, MCH 32.2 H, MCHC 33.3, RDW 13.7, Plt Count 112 L, MPV 9.6, Sodium 138, Potassium 3.8, Chloride 104, Carbon Dioxide 27, Anion Gap 7.0, BUN 25 H, Creatinine 1.3, E stimated GFR (MDRD) 55 L, Glucose 137 H, Calcium 8.5, Magnesium 1.8 05/16/25 03:23: WBC 8.2, RBC 3.89 L, Hgb 12.5 L, Hct 37.1 L, MCV 95.4 H, MCH 32.1 H, MCHC 33.7, RDW 13.6, Plt Count 145, MPV 9.8, Neut # (Auto) 6.8 H, Lymph # (Auto) 0.7 L, Greene # (Auto) 0.6, Eos # (Auto) 0.0, Baso # (Auto) 0.0, Absolute Nucleated RBC 0.00, Nucleated RBC % 0.0, Sodium 137, Potassium 4.2, Chloride 104, Carbon Dioxide 24, Anion Gap 9.0, BUN 25 H, Creatinine 1.3, Estimated GFR (MDRD) 55 L, Glucose 156 H, Calcium 9.2, Total Bilirubin 1.2 H, AST 15, ALT 14, Alkaline Phosphatase 97, Total Protein 6.5, Albumin 3.7, Globulin 2.8, Albumin/Globulin Ratio 1.3, Lipase 42 05/18/25 04:16 05/18/25 04:16 Meds/Allgy Home Medications Ambulatory Orders Medication Instructions Recorded Confirmed bupropion HCl 300 mg 24 hr tablet, 300 mg PO DAILY 01/2303/10/25 extended release (Wellbutrin XL) citalopram 10 mg tablet 10 mg PO DAILY 08/07/2304/27 allopurinol 100 mg tablet 100 mg PO QDAY #90 tabs 07/0503/10/25 atorvastatin 20 mg tablet (Lipitor) 20 mg PO QDAY #90 tabs 07/28/24 03/10/25 gabapentin 100 mg capsule 100 mg PO TID #270 caps 07/0503/10/25 Held on 08/12/24. Instructions: Per Patient prazosin 1 mg capsule See Rx Instructions .Route 1 10/13/23 03/10/25 .COMPLEX #90 caps alfuzosin 10 mg tablet,extended 10 mg PO HS #30 tabs 0 05/14/25 release 24 hr oxycodone-acetaminophen 5 mg-325 1 - 2 tab PO Q6H PRN pain #14 tabs 05/15/25 mg tablet (Percocet) alfuzosin 10 mg tablet,extended 10 mg PO DAILY 05/16/25 release 24 hr Held on 05/16/25. Instructions: NEW RX HASN'T STARTED OF 05/16/25 allopurinol 100 mg tablet 100 mg PO QPM 05/16/2505/16 apixaban 5 mg tablet (Eliquis) 5 mg PO BID 05/16/25 atorvastatin 20 mg tablet 20 mg PO QPM 05/16/25 bupropion HCl 300 mg 24 hr tablet, 300 mg PO QPM 05/1605/16/25 extended release citalopram 10 mg tablet 10 mg PO QPM 05/16/25 metoprolol succinate 50 mg 50 mg PO BID 05/16/2505/16 tablet,extended release 24 hr prazosin 1 mg capsule 1 mg PO QPM 05/16/25 5 Allergies Allergies Allergy/AdvReac Type Severity Reaction Status Date / Time albumin colloid, human Allergy Severe Edema Verified 05/18/25 09:29 [facility] Active Problems All Active Problems (Updated 05/18/25 @ 09:29 by Magali Dey) Back pain (Acute) Fever (Acute) BPH loc w urin obs/LUTS (Acute) Obstructive sleep apnea of adult (Acute) CKD stage 3a, GFR 45-59 ml/min (Acute) Hyperlipemia (Acute) Prediabetes (Acute) Controlled familial obstructive sleep apnea (Chronic) At high risk for falls (Chronic) Tubular adenoma of colon (Chronic) Peripheral neuropathy, idiopathic (Chronic) Gout, unspecified (Acute) Enterococcus UTI (Acute) Acute urinary retention (Acute) Renal stone (Acute) Atrial fibrillation (Chronic) Depression (Chronic) BPH (benign prostatic hyperplasia) (Acute) Intractable back pain (Acute) Acute pain (Acute) Medical History Medical History (Updated 05/18/25 @ 09:29 by Magali Dey) Pacemaker Colon cancer screening Exertional dyspnea Major depressive disorder, recurrent, mild ALC (alcoholic liver cirrhosis) Chronic cervical pain Cardiac arrhythmia, unspecified Acquired dilation of ascending aorta and aortic root Aortic root 3.9cm 05/26/24 on ECHO Erectile dysfunction Surgical History Surgical History (Updated 05/18/25 @ 09:29 by Magali Dey) History of penile implant History of colonoscopy S/P TIPS (transjugular intrahepatic portosystemic shunt) 2/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 cirrhosis Family History Family History (System 05/18/25 @ 09:29 by Magali Dey) Father Snoring Social History Social History (System 05/18/25 @ 09:29 by Magali Dey) Smoking Status: Smoker current status unk Second hand tobacco smoke exposure: No Do you dip or chew tobacco?: No Do you vape?: No Level: Independent Do you feel safe in your home environment?: Yes History of physical, verbal, emotional, or financial abuse?: No ETOH Use: None Substance Use: cannabis (any form) Substance Use Details: CBD Gummies POLST Patient has POLST: No Anesthesia Exam (Expanded) Exam General: Alert, Oriented x3 and Cooperative Dental: WNL Neck Mobility: Normal Mallampati classification: II Thyromental Distance: greater than 6 cm Respiratory: Lungs clear Cardiovascular: Regular rate Exam Exam Vital Signs: Vital Signs x48h Temp Pulse Resp BP Pulse Ox 05/18/25 15:59 36.5 C 62 18 137/88 H 93 Plan Problem List (1) Intractable back pain: (2) Renal stone: (3) Enterococcus UTI: Plan: 69yo M with left 1.8cm UPJ stone and pain -add on for cystoscopy left ureteral stent. The risks/benefits/alternatives were discussed. Specific risks of infection/bleeding/injury discussed. He understands will need subsequent procedures to remove the stone -pt consents to above plan (4) Acute urinary retention: (5) BPH (benign prostatic hyperplasia): Qualifiers: Lower urinary tract symptom presence: symptoms present Lower urinary tract symptom detail: unspecified Qualified Code(s): N40.1 - Benign prostatic hyperplasia with lower urinary tract symptoms (6) Depression: Qualifiers: Depression Type: unspecified Qualified Code(s): F32.A - Depression, unspecified (7) Atrial fibrillation: Qualifiers: Atrial fibrillation type: unspecified chronic Qualified Code(s): I48.20 - Chronic atrial fibrillation, unspecified Plan Anesthesia Type: General Consent for Procedure(s) Verified and Reviewed: Yes Code Status: Attempt Resuscitation ASA Classification ASA classification: 4-Incapacitating disease Is this case an emergency?: Yes
[2025-05-18] MEDS ORDERED: NALOXONE 0.4 MG/ML VIAL IVP PRN (16:24)
[2025-05-18] MEDS ORDERED: ATROPINE ABBOJECT 1 MG/10 ML SYRINGE IVP PRN (16:24)
[2025-05-18] MEDS ORDERED: MORPHINE 2 MG/ML CARPUJECT IVP PRN (16:24)
[2025-05-18] MEDS ORDERED: HYDROmorphone 0.5 MG/0.5 ML SYRINGE IVP PRN (16:24)
[2025-05-18] MEDS ORDERED: METOCLOPRAMIDE 10 MG/2 ML VIAL IVP PRN (16:24)
[2025-05-18] MEDS ORDERED: ONDANSETRON 4 MG/2 ML VIAL IVP PRN (16:24)
[2025-05-18] MEDS ORDERED: fentaNYL 100 MCG/2 ML VIAL IVP PRN (16:24)
[2025-05-18] MEDS ORDERED: ePHEDrine 50 MG/ML VIAL IVP PRN (16:24)
[2025-05-18] MEDS ORDERED: DEXAMETHASONE 4 MG/ML VIAL ONE (17:43)
[2025-05-18] MEDS ORDERED: LIDOCAINE-PF 2% 10 ML AMP SUBQ ONE (17:43)
[2025-05-18] MEDS ORDERED: fentaNYL 100 MCG/2 ML VIAL ONE (17:43)
[2025-05-18] MEDS ORDERED: PROPOFOL 200 MG/20 ML VIAL IVP ONE (17:43)
[2025-05-18] MEDS ORDERED: ONDANSETRON 4 MG/2 ML VIAL ONE (17:43)
[2025-05-18] MEDS ORDERED: LIDOCAINE 2% URO-JET 5 ML SYRINGE UR ONE (17:51)
--- NOTE | 2025-05-18 18:38 | OPERATIVE REPORT ---
Operative Report General Admit Date: 05/17/25 Procedure Data: Operation Date: 05/18/25 14:15 Proposed Procedures p Cystoscopy With Ureteral Stent Placement(Left) - Kamaljit Lorenzana MD Anesthesia Type General Case Times Procedure Start: 05/18/25 18:28 Time out: 05/18/25 18:27 Pre-Op Diagnosis: left kidney stone, urinary retention Post Op Diagnosis: left kidney stone, urinary retention Procedure Note Estimated Blood Loss (ml): 0 Other Other Information/Narrative: After informed consent was obtained the patient brought to the OR and laid in the supine position. The patient was anesthetized per anesthesia protocols and prepped and draped in the usual sterile fashion in the dorsal lithotomy position. A formal timeout was performed reconfirmed the patient and procedure and laterality. A 22 [place]ander cystoscope was advanced easily into the urinary bladder and the bladder was inspected in full. There was some erythema of the bladder wall consistent with recent cystitis. A sensor wire was placed up the left ureteral orifice up into the kidney where a large radiopaque stone was seen. The wire was placed passed stone. A 6 [place] 26 cm stent was placed with good curling noted in the kidney and good curling noted in the bladder. The bladder was emptied and Uro-Jet was placed and then a 18French Murcia catheter was placed. The patient was reversed of anesthesia and brought to the PACU without further incident. He will return to the medical service and have the catheter removed tomorrow for a voiding trial and follow-up with me subsequently to discuss his kidney stone
[2025-05-18] MEDS: LACTATED RINGERS 1,000 ML IV SCH (18:58)
--- NOTE | 2025-05-18 19:20 | ANESTHESIA POST OP EVALUATION ---
Anesthesia Post Eval Post Anesthesia Eval Vitals: Last Vital Signs Temp 36.5 C 05/18/25 19:11 Pulse 56 L 05/18/25 19:11 Resp 20 05/18/25 19:11 BP 140/85 H 05/18/25 19:11 Pulse Ox 90 L 05/18/25 19:11 O2 Flow Rate 0 05/16/25 12:22 CV Function Including HR & BP: Stable Pain Control: Satisfactory Nausea & Vomiting: Negative Mental Status: Baseline Respiratory Status: Airway Patent Hydration Status: Satisfactory Anesthesia Complications: None
[2025-05-19] MEDS ORDERED: PHENAZOPYRIDINE 100 MG TABLET PO SCH (02:00)
[2025-05-19 08:09] VITALS: TEMP 97.9
--- NOTE | 2025-05-19 11:27 | Discharge Summary ---
"Discharge Summary Admit Date: 05/16/25 Discharge Date: 05/19/25 Discharging Provider: Cameron Schultz Primary Care Provider: Viktoria You Code Status: Do Not Attempt Resuscitation DIAGNOSES Discharge Diagnoses with Status of Each Condition: Kidney stone, ongoing Enterococcus UTI, improved Acute urinary retention, resolved Back pain, resolved BPH, stable Depression, stable Atrial fibrillation, stable Alchololic Cirrhosis, compensated, stable HPI History of Present Illness: Patient is a 69-year-old gentleman with a history of BPH, depression, chronic back pain, who presents with intractable back pain. He states it started about 2 days ago, and has progressed. It presents as intense spasms located in the midline of his back, with radiation over to the right or left side of his back. At times, it does present with numbness and tingling down his legs. It never radiates down towards the groin. He denies any bowel incontinence or saddle anesthesia. Prior to the onset of this intense back pain, he did have chronic back pain, which he states was relieved with Excedrin at home. He has never seen a neurologist, nor has he had any spinal or back surgeries in the past. Prior to the onset of this new acute pain, he states that he has been exceptionally active around the house. Him and his are remodeling a house, and they have been working on this for the past year. He does recall lifting some heavy wood prior to the onset of this knee pain. He presented initially a couple days ago, and then went home, and then returned again as the back pain persisted and became more severe and more frequent in nature. He has never had a kidney stone in the past. He has chronic urinary issues with BPH. He recently saw urology for this in the outpatient setting, and was prescribed medications for this. He still struggles with incomplete emptying, but these are chronic issues for him. He denies any fevers or chills. He denies shortness of breath. Other medical problems includes a history of atrial fibrillation on Eliquis. He has a pacemaker in place as well. 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 CONSULTS | PROCEDURES Consultations: Urology, Dr. Columba Lorenzana Procedures: Ureteral stent placement Murcia placement and subsequent removal CT L-spine, Abdomen, pelvis and CTA abdomen HOSPITAL COURSE Hospital Course: Patient was admitted with intractable low back pain. Multiple imaging done initially on arrival. He was found to have a large 1.8 x 1.1 cm stone in the left UPJ. Urology was consulted and they placed a stent on 05/18. His pain greatly improved after that. His course was complicated by both acute urinary retention requiring a Murcia to be placed as well as Enterococcus UTI. A Murcia catheter was placed, and was able to be removed on 05/19 after stent was placed. He was able to void after this with some intermittent pain that he stated felt like he was passing small stones. This may have been related to his ongoing UTI as well. He is being treated with amoxicillin. Plan to treat for 7-day course, with EOT on 05/23. His pain is improved greatly. We did discuss whether he needed narcotics going home, and he felt that he would be able to manage with Tylenol alone. Antibiotics were sent to his pharmacy. He was discharged in stable condition without a Murcia in place. His case was discussed with urology on day of discharge. He has follow-up with urology scheduled already for next week. ALLERGIES Allergies Allergy/AdvReac Type Severity Reaction Status Date / Time albumin colloid, human Allergy Severe Edema Verified 05/18/25 09:29 MEDICATIONS Ambulatory Orders Medication Instructions Recorded Confirmed bupropion HCl 300 mg 24 hr tablet, 300 mg PO DAILY 01/2303/10/25 extended release (Wellbutrin XL) citalopram 10 mg tablet 10 mg PO DAILY 08/07/2304/27 allopurinol 100 mg tablet 100 mg PO QDAY #90 tabs 07/0503/10/25 atorvastatin 20 mg tablet (Lipitor) 20 mg PO QDAY #90 tabs 07/28/24 03/10/25 gabapentin 100 mg capsule 100 mg PO TID #270 caps 07/0503/10/25 prazosin 1 mg capsule See Rx Instructions .Route 1 10/13/23 03/10/25 .COMPLEX #90 caps alfuzosin 10 mg tablet,extended 10 mg PO HS #30 tabs 0 05/14/25 release 24 hr oxycodone-acetaminophen 5 mg-325 1 - 2 tab PO Q6H PRN pain #14 tabs 05/15/25 mg tablet (Percocet) alfuzosin 10 mg tablet,extended 10 mg PO DAILY 5 05/16/25 release 24 hr allopurinol 100 mg tablet 100 mg PO QPM 05/16/2505/16 apixaban 5 mg tablet (Eliquis) 5 mg PO BID 05/16/25 atorvastatin 20 mg tablet 20 mg PO QPM 05/16/25 bupropion HCl 300 mg 24 hr tablet, 300 mg PO QPM 05/1605/16/25 extended release citalopram 10 mg tablet 10 mg PO QPM 05/16/25 metoprolol succinate 50 mg 50 mg PO BID 05/16/2505/16 tablet,extended release 24 hr prazosin 1 mg capsule 1 mg PO QPM 05/16/25 5 amoxicillin 250 mg capsule 500 mg (2 x 250 mg) PO TID 05/19/25 Enterococcus Cystitis 4 days #24 caps amoxicillin 500 mg capsule 500 mg PO TID 4 days #12 ca ps 05/19/25 PHYSICAL EXAM AT DISCHARGE Vital Signs: Vital Signs x48h Temp Pulse Resp BP Pulse Ox 05/19/25 14:25 36.6 C 65 16 142/62 H 95 GEN: No acute distress, somnolent. HEENT: NC/AT, normal appearance of external ears and nose. Hearing baseline. Cardiac: Regular rate and rhythm, no murmurs. Pulm: Lungs CTA bilaterally, no cough, no wheezes Abdomen: Soft, nontender, nondistended. No rebound or guarding Extremities: Moves all 4 extremities equally. Normal tone. Neuro: Face symmetric, CN II through XII intact grossly. Gait exam deferred Psych: Mood euthymic with congruent affect. LABS 05/18/25 04:16 05/18/25 04:16 DIAGNOSTIC IMAGING Diagnostic Imaging Results: Final report reviewed and Read independently SEPSIS Current Stage of Sepsis: Ruled out FOLLOW UP Follow Up: Encourage patient to follow-up with his primary care provider within the next 1 to 2 weeks. Patient has follow-up with urology, Dr. Lorenzana in 1 week. TIME SPENT Time Spent in Discharge (Minutes): 81 Discharge Plan Discharge Patient Disposition: 01 Home, Self Care Condition: Good Medically Cleared Date:: 05/19/25 Prescriptions: New amoxicillin 250 mg Capsule 500 mg PO TID 4 Days Qty: 24 0RF amoxicillin 500 mg capsule 500 mg PO TID 4 Days Qty: 12 0RF Continued prazosin 1 mg capsule See Rx Instructions .ROUTE .COMPLEX Qty: 90 3RF Dose Instruction: TAKE 1 CAPSULE BY MOUTH AT BEDTIME Rx Instructions: TAKE 1 CAPSULE BY MOUTH AT BEDTIME alfuzosin 10 mg tablet extended release 24 hr 10 mg PO HS Qty: 30 1RF Rx Instructions: administer after the same meal each day citalopram 10 MG tablet 10 mg PO DAILY bupropion HCl [Wellbutrin XL] 300 MG tablet extended release 24 hr 300 mg PO DAILY oxycodone-acetaminophen [Percocet] 5-325 mg tablet 1 - 2 tab PO Q6H PRN (Reason: pain) Qty: 14 0RF atorvastatin 20 mg tablet 20 mg PO QPM metoprolol succinate 50 mg tablet extended release 24 hr 50 mg PO BID citalopram 10 mg tablet 10 mg PO QPM prazosin 1 mg capsule 1 mg PO QPM allopurinol 100 mg tablet 100 mg PO QPM bupropion HCl 300 mg tablet extended release 24 hr 300 mg PO QPM alfuzosin 10 mg tablet extended release 24 hr 10 mg PO DAILY Eliquis 5 mg tablet 5 mg PO BID gabapentin 100 mg capsule 100 mg PO TID Qty: 270 3RF Patient Comments: has never started taking yet allopurinol 100 mg tablet 100 mg PO QDAY Qty: 90 3RF atorvastatin [Lipitor] 20 mg tablet 20 mg PO QDAY Qty: 90 3RF Activity Restrictions: No Restrictions Diet: Regular Health Concerns: You were admitted with a kidney stone and infected urine. You were treated with antibiotics, pain medications, and improved after getting a stent placed by urology. I hope you continue to get better. In order to continue your care at home: 1) Follow up with the urologist in the as planned 2) Continue taking your antibiotic as prescribed 3) You can take tylenol if needed for pain Print Language: Danish Patient Instructions: Surg Dc, Indwelling Urinary Catheter Dc Vitals documented within 30 minutes of discharge?: Yes"
--- NOTE | 2025-05-19 12:26 | XRAY Report ---
PROCEDURE: [place] OR C-Arm Procedure INDICATIONS: Left Kidney Stone FLUORO TIME: 0.01 MIN TECHNIQUE: Intraoperative fluoroscopic films obtained for a medical procedure. COMPARISON: CT abdomen/pelvis 05/16/2025 FINDINGS Stone in the proximal left ureter measuring approximately 2.4 cm. Left ureteral wire extending into the left renal collecting system. A ureteral catheter is placed. IMPRESSION: Intraoperative fluoroscopic films obtained for a medical procedure. Please see operative note. Reviewed by: Chip Perez MD on 05/19/2025 11:33 AM PDT Approved by: Chip Perez MD on 05/19/2025 11:33 AM PDT Station ID: [id number]
[2025-05-19] MEDS: ONDANSETRON ODT 4 MG TABLET TL PRN (12:32)
[2025-05-19 14:31] VITALS: BP 142/62; O2SAT 95
[2025-05-20] MEDS ORDERED: ALFUZOSIN 10 MG PO SCH (09:00)
--- NOTE | 2025-05-24 19:39 | ED Physician Documentation ---
ED Addendum Addendum Addendum: Patient was admitted to the hospitalist service at the time of signout. I did not have any participation in this patient's care Discharge Plan Discharge Patient Disposition: 66 [facility] DC/Xfer Condition: Good Clinical Impression: Acute pain Interventions: ED Admission Assessment Last Done: 05/16/25 08:19 Vitals documented within 30 minutes of discharge?: Yes
== END 2025-05-19 14:31 | disposition home or self-care (01) | DRG 660 ==
LOC: EDSEX → ED 02:18 → MS2 02:18
PROVIDERS: ADMIT Internal Medicine; ATTEND Internal Medicine
DX: M51.360 Other intervertebral disc degeneration, lumbar region with discogenic back pain only; R33.8 Other retention of urine; M51.372 Other intervertebral disc degeneration, lumbosacral region with discogenic back pain and lower extremity pain; N39.498 Other specified urinary incontinence; R39.14 Feeling of incomplete bladder emptying; K70.30 Alcoholic cirrhosis of liver without ascites; N20.0 Calculus of kidney; F32.A Depression, unspecified; I48.91 Unspecified atrial fibrillation; B95.2 Enterococcus as the cause of diseases classified elsewhere; N39.0 Urinary tract infection, site not specified; N18.31 Chronic kidney disease, stage 3a; N40.1 Benign prostatic hyperplasia with lower urinary tract symptoms; Z95.0 Presence of cardiac pacemaker; M54.9 Dorsalgia, unspecified; Z79.01 Long term (current) use of anticoagulants; G89.29 Other chronic pain

== ENCOUNTER 2025-06-19 11:22 | Inpatient (IN) ==
--- NOTE | 2025-06-19 12:16 | ED Physician Documentation ---
History of Present Illness Stated complaint Stated Complaint: SOA Chief complaint Chief Complaint: General History obtained from History obtained from: Patient and Family History of Present Illness Pain level max: 5 Pain level now: 3 Additonal information Additional information: Patient is a 69-year-old male who presents to the emergency department stating that he has been feeling increasingly weak over the past few weeks. He states intermittently this has happened for years but has become worse recently. He states that he had a left-sided ureteral stone and lithotripsy performed. He was seen here a few days ago for hypotension, blood cultures were positive for Enterococcus faecalis. He has been on ciprofloxacin but is feeling more and more weak. Having difficulty standing today. Having some chills at home. He states that he had a "small fever". No cough or congestion. No vomiting. Has some mild right sided back pain, worse with movement. Had laboratory testing and a CT scan done outpatient today but came here because he was more weak and told that he had an infection in his blood. Review of Systems Constitutional Reports: Fever, Chills, Malaise and Weakness Ears, nose, mouth, and throat Denies: Neck pain Genitourinary Reports: Flank pain; Denies: Painful urination Musculoskeletal Denies: Back pain or Neck pain Integumentary/Breast Denies: Rash Meds/Allgy Home Medications Ambulatory Orders Medication Instructions Recorded Confirmed bupropion HCl 300 mg 24 hr tablet, 300 mg PO DAILY 01/2306/10/25 extended release (Wellbutrin XL) citalopram 10 mg tablet 10 mg PO DAILY 08/07/2304/27 prazosin 1 mg capsule See Rx Instructions .Route 1 10/13/23 06/10/25 .COMPLEX #90 caps alfuzosin 10 mg tablet,extended 10 mg PO HS #30 tabs 0 05/14/25 06/10/25 release 24 hr allopurinol 100 mg tablet 100 mg PO QPM 05/16/2506/10 apixaban 5 mg tablet (Eliquis) 5 mg PO BID 05/16/25 atorvastatin 20 mg tablet 20 mg PO QPM 05/16/25 metoprolol succinate 50 mg 50 mg PO BID 05/16/2506/10 tablet,extended release 24 hr phenazopyridine 200 mg tablet 200 mg PO TID PRN bladde r pain 9 05/22/25 06/08/25 (Pyridium) doses #9 tabs ciprofloxacin HCl 500 mg tablet 500 mg PO BID #14 tabs 05/28/25 06/10/25 ondansetron 4 mg disintegrating 4 mg PO Q8H PRN nausea and 05/28/25 06/10/25 tablet vomiting #14 tabs gabapentin 100 mg capsule 100 mg PO TID PRN pain 05/2906/10/25 oxycodone-acetaminophen 5 mg-325 1 tab PO Q12H PRN jill n #10 tabs 06/02/25 06/10/25 mg tablet (Percocet) oxycodone 5 mg tablet 5 mg PO Q4H PRN Pain #10 tab s 06/08/25 06/10/25 ciprofloxacin HCl 500 mg tablet 500 mg PO BID #14 tabs 06/10/25 ciprofloxacin HCl 500 mg tablet 500 mg PO BID #14 tabs 06/18/25 Allergies Allergies Allergy/AdvReac Type Severity Reaction Status Date / Time albumin colloid, human Allergy Severe Edema Verified 06/19/25 11:44 PFSH Active Problems All Active Problems (Updated 06/19/25 @ 14:41 by BELKYS Degroot) Urinary retention (Acute) Bacteremia (Acute) Bacteremia (Acute) Light-headedness (Acute) Acute hypotension (Acute) Acute urinary retention (Acute) History of ureter stent (Acute) Acute UTI (Acute) Cystitis (Acute) Back pain (Acute) BPH loc w urin obs/LUTS (Acute) Obstructive sleep apnea of adult (Acute) CKD stage 3a, GFR 45-59 ml/min (Acute) Hyperlipemia (Acute) Prediabetes (Acute) Controlled familial obstructive sleep apnea (Chronic) At high risk for falls (Chronic) Tubular adenoma of colon (Chronic) Peripheral neuropathy, idiopathic (Chronic) Gout, unspecified (Acute) Enterococcus UTI (Acute) Acute urinary retention (Acute) Renal stone (Acute) Atrial fibrillation (Chronic) Depression (Chronic) BPH (benign prostatic hyperplasia) (Acute) Intractable back pain (Acute) Acute pain (Acute) Medical History Medical History (Updated 06/19/25 @ 14:41 by BELKYS Degroot) Pacemaker Colon cancer screening Exertional dyspnea Major depressive disorder, recurrent, mild ALC (alcoholic liver cirrhosis) Chronic cervical pain Cardiac arrhythmia, unspecified Acquired dilation of ascending aorta and aortic root Aortic root 3.9cm 05/26/24 on ECHO Erectile dysfunction Surgical History Surgical History History of penile implant History of colonoscopy S/P TIPS (transjugular intrahepatic portosystemic shunt) 2/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 cirrhosis Family History Family History (System 05/18/25 @ 09:29 by Magali Dey) Father Snoring Social History Social History (Updated 06/10/25 @ 10:22 by Gregg Webster RN, BSN) Smoking Status: Smoker with current status unk Second hand tobacco smoke exposure: Yes Do you dip or chew tobacco?: No Do you vape?: No Patient requests smoking cessation consult: No Initiate information on smoking cessation: No Level: Independent Do you feel safe in your home environment?: Yes History of physical, verbal, emotional, or financial abuse?: No ETOH Use: None Substance Use: cannabis (any form) Substance Use Details: gummies 3x/week POLST Patient has POLST: No POLST CPR Status: Attempt Resuscitation (CPR) Level of Medical Intervention: Full Treatment Exam Exam Vital Signs: Vital Signs x48h Temp Pulse Resp BP Pulse Ox 06/19/25 11:48 72 18 105/57 L 98 06/19/25 11:37 35.9 C L 79 20 98/63 100 Constitutional normal general appearance and no apparent distress HENMT oropharynx normal moist mucous membranes Eyes PERRL Neck/C-Spine visual inspection normal Respiratory breath sounds equal bilaterally, normal respiratory effort and clear to auscultation bilaterally Cardiovascular normal heart rate noted and regular rhythm noted Gastrointestinal abdomen normal to inspection, abdomen soft to palpation, nontender to palpation and nondistended Genitourinary no CVA tenderness Extremities no edema Neurology speech normal Psychiatry mental status grossly normal and oriented x3 Skin skin color normal Results Vitals Vitals: Vital Signs - 24 hr 06/19/25 11:37 06/19/25 11:48 Temperature 35.9 C L Temperature Source Temporal Artery Scan Pulse Rate 79 72 Respiratory Rate 20 18 Blood Pressure 98/63 105/57 L O2 Saturation 100 98 O2 Source Room air Room air Pain Intensity 3 2 Oxygen O2 Source Room air Labs Labs: Laboratory Tests 06/19/25 12:21 Lactic Acid 1.9 PD Medical Decision Making ED course Complexity details: reviewed results, re-evaluated patient, considered differential and d/w patient ED course: 69-year-old male with positive blood cultures for Enterococcus faecalis. Worsening chills at home and worsening weakness. New blood cultures were drawn earlier today. Had outpatient labs and CT scan performed today. No obstruction. Given IV Unasyn here. Lactate was drawn and is normal. Given his recent positive blood cultures and worsening symptoms, will admit for further care. Discussed with the hospitalist who accepts. This document was made in part using voice recognition software. While efforts are made to proofread this document, sound alike and grammatical errors may occur. Discharge Plan Discharge Patient Disposition: 65 [facility] DC/Xfer Condition: Stable Clinical Impression: Bacteremia Interventions: ED Admission Assessment Last Done: 06/19/25 13:10 Vitals documented within 30 minutes of discharge?: Yes
[2025-06-19] MEDS: SODIUM CHLORIDE 0.9% 1,000 ML IV STA (12:44)
[2025-06-19] MEDS: AMPICILLIN/SULBACTAM 3 GM in SODIUM CHLORIDE 0.9% MINIBAG 100 ML IV STA (12:44)
--- NOTE | 2025-06-19 12:45 | HISTORY & PHYSICAL EXAMINATION ---
Chief Complaint Chief Complaint Chief Complaint: weakness for several weeks History of Present Illness Admitted From Admitted From:: home History Obtained From Records Reviewed: urology notes, admit notes 05/16- History of Present Illness HPI Comment/Other: 69M w BPH, depression, chronic back pain , alcoholic cirrhosis s/p TIPS , hx of penile implant and recent admission for kidney stone accompanied by Enterococcus UTI presents to the emergency department stating he was told to come for positive blood cultures. He has been seen by urology and underwent cystoscopy, left ureteroscopy, lithotripsy and stent placement on the left on 06/08/25. At home he has been feeling weak and tired. He has been having pain, mainly back pain and has gotten multiple rx's for oxycodone for this, 68 tablets in the last month in this patient who normally does not take narcotics. He was discharged from his last hospitalization with a course of Cipro. Was to take this through 05/23. Seen in the emergency department on the , and of this month for complaints of generalized weakness. He had been placed on Cipro in the outpatient environment this month as well. For total of 7 days. However, Enterococcus faecalis can be resistant to Cipro. He is also having some chills at home. general body aches. tea colored urine with urinary frequency, and hesitancy. right flank pain. no abdominal pain, no bowel complaints. Cardiac hx: a fib and pacemaker for sick sinus syndrome. Dr Benjamin is business coordinator. Cardiololgy notes revewied from February 2025. he was placed on Eliquis and decision was made for catheter ablation of a flutter. Normal myocardial perfusion scan in February of 2025. Echo with normal EF May 2024. Dr You is his rehanger. She last saw him in July 2024. Hx pre DM (A1C 6.4% Jul 2024), CKD 3a, Cr 1.3, as well as gout. is surrogate decision maker. Patient does not have POLST. DNR, intubation OK. Introduced POLST form to patient at bedside. His is not currently present. We went over the options and best choice for him will likely be DNR full treatment. Meds/Allgy Home Medications Ambulatory Orders Medication Instructions Recorded Confirmed bupropion HCl 300 mg 24 hr tablet, 300 mg PO DAILY 01/2306/10/25 extended release (Wellbutrin XL) citalopram 10 mg tablet 10 mg PO DAILY 08/07/2304/27 prazosin 1 mg capsule See Rx Instructions .Route 1 10/13/23 06/10/25 .COMPLEX #90 caps alfuzosin 10 mg tablet,extended 10 mg PO HS #30 tabs 0 05/14/25 06/10/25 release 24 hr allopurinol 100 mg tablet 100 mg PO QPM 05/16/2506/10 apixaban 5 mg tablet (Eliquis) 5 mg PO BID 05/16/25 atorvastatin 20 mg tablet 20 mg PO QPM 05/16/25 metoprolol succinate 50 mg 50 mg PO BID 05/16/2506/10 tablet,extended release 24 hr phenazopyridine 200 mg tablet 200 mg PO TID PRN bladde r pain 9 05/22/25 06/08/25 (Pyridium) doses #9 tabs ciprofloxacin HCl 500 mg tablet 500 mg PO BID #14 tabs 05/28/25 06/10/25 ondansetron 4 mg disintegrating 4 mg PO Q8H PRN nausea and 05/28/25 06/10/25 tablet vomiting #14 tabs gabapentin 100 mg capsule 100 mg PO TID PRN pain 05/2906/10/25 oxycodone-acetaminophen 5 mg-325 1 tab PO Q12H PRN jill n #10 tabs 06/02/25 06/10/25 mg tablet (Percocet) oxycodone 5 mg tablet 5 mg PO Q4H PRN Pain #10 tab s 06/08/25 06/10/25 ciprofloxacin HCl 500 mg tablet 500 mg PO BID #14 tabs 06/10/25 ciprofloxacin HCl 500 mg tablet 500 mg PO BID #14 tabs 06/18/25 Allergies Allergies Allergy/AdvReac Type Severity Reaction Status Date / Time albumin colloid, human Allergy Severe Edema Verified 06/19/25 11:44 PFSH Active Problems All Active Problems (Updated 06/19/25 @ 14:41 by BELKYS Degroot) Urinary retention (Acute) Bacteremia (Acute) Bacteremia (Acute) Light-headedness (Acute) Acute hypotension (Acute) Acute urinary retention (Acute) History of ureter stent (Acute) Acute UTI (Acute) Cystitis (Acute) Back pain (Acute) BPH loc w urin obs/LUTS (Acute) Obstructive sleep apnea of adult (Acute) CKD stage 3a, GFR 45-59 ml/min (Acute) Hyperlipemia (Acute) Prediabetes (Acute) Controlled familial obstructive sleep apnea (Chronic) At high risk for falls (Chronic) Tubular adenoma of colon (Chronic) Peripheral neuropathy, idiopathic (Chronic) Gout, unspecified (Acute) Enterococcus UTI (Acute) Acute urinary retention (Acute) Renal stone (Acute) Atrial fibrillation (Chronic) Depression (Chronic) BPH (benign prostatic hyperplasia) (Acute) Intractable back pain (Acute) Acute pain (Acute) Medical History Medical History (Updated 06/19/25 @ 14:41 by BELKYS Degroot) Pacemaker Colon cancer screening Exertional dyspnea Major depressive disorder, recurrent, mild ALC (alcoholic liver cirrhosis) Chronic cervical pain Cardiac arrhythmia, unspecified Acquired dilation of ascending aorta and aortic root Aortic root 3.9cm 05/26/24 on ECHO Erectile dysfunction Surgical History Surgical History History of penile implant History of colonoscopy S/P TIPS (transjugular intrahepatic portosystemic shunt) 2/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 cirrhosis Family History Family History (System 05/18/25 @ 09:29 by Magali Dey) Father Snoring Social History Social History (Updated 06/10/25 @ 10:22 by Gregg Webster, LUCIA, BSN) Smoking Status: Smoker with current status unk Second hand tobacco smoke exposure: Yes Do you dip or chew tobacco?: No Do you vape?: No Patient requests smoking cessation consult: No Initiate information on smoking cessation: No Level: Independent Do you feel safe in your home environment?: Yes History of physical, verbal, emotional, or financial abuse?: No ETOH Use: None Substance Use: cannabis (any form) Substance Use Details: gummies 3x/week POLST Patient has POLST: No POLST on file?: No POLST CPR Status: Do Not Attempt Resuscitation (DNAR) / Allow Natural Review of Systems Status of ROS: 10 or more systems reviewed and unremarkable except as noted in history and below Prior Level of Functionality: independent. Exam Exam Vital Signs: Vital Signs x48h Temp Pulse Pulse Resp BP BP Pulse Ox 06/19/25 13:52 36.6 C 79 18 119/66 98 06/19/25 12:48 66 18 111/64 94 06/19/25 11:48 72 18 105/57 L 98 06/19/25 11:37 35.9 C L 79 20 98/63 100 Constitutional normal general appearance and no apparent distress [facility] normocephalic Eyes conjunctivae normal and no scleral icterus Neck/C-Spine visual inspection normal Lymph no lymphadenopathy noted Chest inspection of chest normal Respiratory breath sounds equal bilaterally, normal respiratory effort and clear to auscultation bilaterally Cardiovascular normal heart rate noted, regular rhythm noted and no additional abnormal heart sounds pacer spikes evident on monitor Gastrointestinal abdomen normal to inspection and abdomen soft to palpation no suprapubic tenderness. 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 Patient has been on Cipro in the outpatient environment. This bacteria shows significant resistance to Cipro. Edil has gram positive bacteremia. He should have IV abx and should be screened for valvular vegetations w echocardiogram. He is symptomatic from a subjective standpoint with weakness and decreased activity tolerance. His lactic acid level is normal, and he does not have objective evidence of fever, although at home has been having some "spells". Discussed with Dr Briseno in the ED and descision made to admit the patient for bacteremia. I will admit him to inpatient status. (2) Acute hypotension: Plan: Selected Entries 06/19/25 11:37 06/19/25 11:48 06/19/25 12:48 Pulse Rate 79 72 66 Pulse Rate [Brachial] Blood Pressure 98/63 105/57 L 111/64 Blood Pressure [Right Brachial artery] 06/19/25 13:52 Pulse Rate Pulse Rate [Brachial] 79 Blood Pressure Blood Pressure [Right Brachial artery] 119/66 This is the only indicator for possible sepsis. normal HR (paced) normal mentation, no fever, no leukocytosis. received 1L NS in the ED. He can eat and drink at will. seems to be improving as the day goes on (3) Acute urinary retention: Plan: PVR 344ml. Patient with hx BPH and states that he is having urinary frequency and hesitancy at home with small volumes of urination, occasional gross hematuria. Reviewed CT A/P with Dr Lorenzana, urology. he is not concerned about the lower pole non obstructive stone- likely is sequela from recent urological procedures and large stone at left renal pelvis. I have asked RN to place teague for retention, this will make the patient more comfortable. Will also send urine culture at this time. It may not grow anything given that he has had abx several hours ago (4) Atrial fibrillation: Plan: last cardiology note mentions possible ablation procedure, but no record of completion of that. I will check with patient and see if that happened. This was about February of this year. he is on Eliquis and metoprolol, but med rec is not complete at this time. Qualifiers: Atrial fibrillation type: unspecified chronic Qualified Code(s): I48.20 - Chronic atrial fibrillation, unspecified (5) CKD stage 3a, GFR 45-59 ml/min: Plan: Laboratory Tests 05/17/25 05/18/25 06/10/25 04:20 04:16 11:10 Creatinine 1.3 1.0 1.4 H 06/16/25 06/19/25 12:14 11:07 Creatinine 1.4 H 1.4 H Likely stable. Daily BMP for now. (6) Prediabetes: Plan: last A1C 6.4 almost one year ago. I have added on repeat lab for the AM. (7) Controlled familial obstructive sleep apnea: Plan: He uses his CPAP every night. He did not bring it to the hospital with him today. He states his can bring his CPAP to the hospital. Okay to use home CPAP. (8) Pacemaker: Plan: Follows w Cardiology at [facility]. stable, he is pacer dependent. (9) ALC (alcoholic liver cirrhosis): Plan: stable. s/p TIPS. he is sober for years. Lab Results Lab results reviewed: Yes Diagnostic Imaging Results Diagnostic Imaging Results Comments: CT A/P: 1. Left inferior pole nonobstructive stone measures up to 1.4 cm. No hydronephrosis. 2. Layering punctate stones within the urinary bladder. 3. Cirrhosis with sequela of portal hypertension and TIPS procedure. Core Measures Anticipated LOS I expect patient to be DC'd or transferred within 96 hours.: Yes Issues Hospital Issues and Management Plan: I have spent 85 minutes in the care of this patient today. This includes time [id number], review and ordering of diagnostic imaging and laboratory studies and consultation with other providers. Monitoring the patient's signs symptoms, evaluation of medication effectiveness and patient's response to treatment. DVT/VTE - Prophylaxis VTE/DVT Prophylaxis med ordered at admit?: No Not Ordered - Medical Reason: Not indicated (Eliquis)
[2025-06-19] MEDS ORDERED: ACETAMINOPHEN 325 MG TABLET PO PRN (13:21)
[2025-06-19] MEDS ORDERED: ONDANSETRON ODT 4 MG TABLET TL PRN (13:21)
[2025-06-19] MEDS ORDERED: oxyCODONE 5 MG TABLET PO PRN (13:21)
--- NOTE | 2025-06-19 13:49 | CONSULTATION NOTE ---
History of Present Illness History of Present Illness HPI Comment/Other: Carrington is a 69-year-old male well-known to me with a history of penile implant placed 2 years ago, more recently seen for significant kidney stone burden. I saw him in mid May of this year with a 1.8 cm left UPJ stone. A stent wa s placed. He had a lot of issues with pain with the stent and I asked him to go to the ER multiple times afterwards as he and his were complaining about his significant pain issues and anorexia and fatigue. However he refused to go. He was diagnosed with a UTI which was Enterococcus before his stent was placed. Ultimately he was given antibiotics and taken for a repeat procedure on June 08 for left ureteroscopy and laser lithotripsy. This was complicated by urinary retention on June 10. I saw him in the office 3 days ago for catheter removal and stent removal. He again complained of fatigue and so I sent him to the ER. He had blood work there which was ultimately quite unremarkable with no leukocytosis and his baseline anemia baseline renal function. Blood cultures were thankfully sent which did return back with positive Enterococcus faecalis bacteremia. Dr. Borja and I both contacted him yesterday and he stated he was feeling okay. He was on ciprofloxacin at that time. I recommended that he get a stat CT scan to rule out obstructing ureteral stones. He had that done this morning. CT scan showed some layering stones in the left lower pole consistent with stones that were difficult to reach on ureteroscopy and some layering stones in his bladder. No obstructing stones. He did present to the ER for worsening fatigue. He has been admitted to the medical service for further management. In the hospital his PVR was 340 cc. Teague catheter was replaced. Discussed with patient at bedside [facility] Active Problems All Active Problems (Updated 06/19/25 @ 14:41 by BELKYS Degroot) Urinary retention (Acute) Bacteremia (Acute) Bacteremia (Acute) Light-headedness (Acute) Acute hypotension (Acute) Acute urinary retention (Acute) History of ureter stent (Acute) Acute UTI (Acute) Cystitis (Acute) Back pain (Acute) BPH loc w urin obs/LUTS (Acute) Obstructive sleep apnea of adult (Acute) CKD stage 3a, GFR 45-59 ml/min (Acute) Hyperlipemia (Acute) Prediabetes (Acute) Controlled familial obstructive sleep apnea (Chronic) At high risk for falls (Chronic) Tubular adenoma of colon (Chronic) Peripheral neuropathy, idiopathic (Chronic) Gout, unspecified (Acute) Enterococcus UTI (Acute) Acute urinary retention (Acute) Renal stone (Acute) Atrial fibrillation (Chronic) Depression (Chronic) BPH (benign prostatic hyperplasia) (Acute) Intractable back pain (Acute) Acute pain (Acute) Medical History Medical History (Updated 06/19/25 @ 14:41 by BELKYS Degroot) Pacemaker Colon cancer screening Exertional dyspnea Major depressive disorder, recurrent, mild ALC (alcoholic liver cirrhosis) Chronic cervical pain Cardiac arrhythmia, unspecified Acquired dilation of ascending aorta and aortic root Aortic root 3.9cm 05/26/24 on ECHO Erectile dysfunction Surgical History Surgical History History of penile implant History of colonoscopy S/P TIPS (transjugular intrahepatic portosystemic shunt) 2/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 cirrhosis Family History Family History (System 05/18/25 @ 09:29 by Magali Dey) Father Snoring Social History Social History (Updated 06/10/25 @ 10:22 by Gregg Webster RN, BSN) Smoking Status: Smoker with current status unk Second hand tobacco smoke exposure: Yes Do you dip or chew tobacco?: No Do you vape?: No Patient requests smoking cessation consult: No Initiate information on smoking cessation: No Level: Independent Do you feel safe in your home environment?: Yes History of physical, verbal, emotional, or financial abuse?: No ETOH Use: None Substance Use: cannabis (any form) Substance Use Details: gummies 3x/week POLST Patient has POLST: No POLST CPR Status: Attempt Resuscitation (CPR) Level of Medical Intervention: Full Treatment Meds/Allgy Home Medications Ambulatory Orders Medication Instructions Recorded Confirmed bupropion HCl 300 mg 24 hr tablet, 300 mg PO DAILY 01/2306/10/25 extended release (Wellbutrin XL) citalopram 10 mg tablet 10 mg PO DAILY 08/07/2304/27 prazosin 1 mg capsule See Rx Instructions .Route 1 10/13/23 06/10/25 .COMPLEX #90 caps alfuzosin 10 mg tablet,extended 10 mg PO HS #30 tabs 0 05/14/25 06/10/25 release 24 hr allopurinol 100 mg tablet 100 mg PO QPM 05/16/2506/10 apixaban 5 mg tablet (Eliquis) 5 mg PO BID 05/16/25 atorvastatin 20 mg tablet 20 mg PO QPM 05/16/25 metoprolol succinate 50 mg 50 mg PO BID 05/16/2506/10 tablet,extended release 24 hr phenazopyridine 200 mg tablet 200 mg PO TID PRN bladde r pain 9 05/22/25 06/08/25 (Pyridium) doses #9 tabs ciprofloxacin HCl 500 mg tablet 500 mg PO BID #14 tabs 05/28/25 06/10/25 ondansetron 4 mg disintegrating 4 mg PO Q8H PRN nausea and 05/28/25 06/10/25 tablet vomiting #14 tabs gabapentin 100 mg capsule 100 mg PO TID PRN pain 05/2906/10/25 oxycodone-acetaminophen 5 mg-325 1 tab PO Q12H PRN jill n #10 tabs 06/02/25 06/10/25 mg tablet (Percocet) oxycodone 5 mg tablet 5 mg PO Q4H PRN Pain #10 tab s 06/08/25 06/10/25 ciprofloxacin HCl 500 mg tablet 500 mg PO BID #14 tabs 06/10/25 ciprofloxacin HCl 500 mg tablet 500 mg PO BID #14 tabs 06/18/25 Allergies Allergies Allergy/AdvReac Type Severity Reaction Status Date / Time albumin colloid, human Allergy Severe Edema Verified 06/19/25 11:44 Results Lab Results Lab results reviewed: Yes Other Lab Results: Lab Results x24hrs 06/19/25 Range/Units 12:21 Lactic Acid 1.9 (0.5-2.2) mmol/L Diagnostic Imaging Results Diagnostic Imaging Results: positive Read independently Exam Exam Vital Signs: Vital Signs x48h Temp Pulse Resp BP Pulse Ox 06/19/25 12:48 66 18 111/64 94 06/19/25 11:48 72 18 105/57 L 98 06/19/25 11:37 35.9 C L 79 20 98/63 100 NAD pink tinged urine in teague Conclusion/Plan Problem List (1) Urinary retention: Plan: Recent urinary retention on alfuzosin I think related to inflammation more than anything. Should keep catheter in place for now to maximize drainage. Once he is up and ambulating better Teague catheter should be removed. Continue alfuzosin (2) Bacteremia: Plan: Bacteremia from urinary source proceeding urinary procedures. Continue antibiotics as per hospitalist team. Ultimately may require further stone management which will need a flexible ureteroscope which is disposable to get around tight corners of the lower pole of the left kidney. No acute intervention. Will follow along Lab Results Lab results reviewed: Yes Diagnostic Imaging Results Diagnostic Imaging Results: positive Read independently
[2025-06-19] MEDS: LIDOCAINE 2% URO-JET 5 ML SYRINGE UR ONE (14:50)
[2025-06-19] MEDS: SODIUM CHLORIDE FLUSH 0.9% 10 ML SYRINGE IVP SCH (18:06)
[2025-06-19] MEDS: AMPICILLIN/SULBACTAM 1.5 GM in SODIUM CHLORIDE 0.9% MINIBAG 100 ML IV SCH (18:06)
[2025-06-20 06:03] LABS: HCT - HEMATOCRIT 33.3 % (42.0-52.0); HGB - HEMOGLOBIN 11.2 g/dL (14.0-18.0); MEAN PLATELET VOLUME 10.1 fL (7.4-11.4); NRBC ABSOLUTE COUNT (AUTO) 0.00 x10^3/uL; NUCLEATED RED BLOOD CELLS AUTO 0.0 /100WBC; PLT - PLATELET COUNT 134 10^3/uL (130-450); RED CELL DISTRIBUTION WIDTH 13.9 % (12.0-15.0)
[2025-06-20 06:19] LABS: BUN - BLOOD UREA NITROGEN 17.0 mg/dL (6-20); CARBON DIOXIDE - CO2 21.0 mmol/L (21-32); CREATININE 1.1 mg/dL (0.6-1.3); GFR - MDRD 66.0 (>89)
--- NOTE | 2025-06-20 09:37 | PROVIDER PROGRESS NOTE ---
Subjective General Admit Date: 06/19/25 Procedure Date: 08/13/23 Post Op Days: 677 Other Other Information/Narrative: No acute events overnight. He feels much better. He is on Unasyn. Vitals are remarkably normal and blood work benign Exam Exam NAD teague CYU ABX Reporting Has patient been on IV antibiotics over the past 48 hours?: Yes Impression/Plan Problem List (1) Bacteremia: Plan: continue abx per primary tream (2) Acute hypotension: (3) Acute urinary retention: Plan: remove teague catheter tomorrow (06/21/25) and see if can void I recommend ambulation a lot today. He feels much better which is excellent. Tamsulosin ordered for tonight (4) Atrial fibrillation: Qualifiers: Atrial fibrillation type: unspecified chronic Qualified Code(s): I48.20 - Chronic atrial fibrillation, unspecified (5) CKD stage 3a, GFR 45-59 ml/min: (6) Prediabetes: (7) Controlled familial obstructive sleep apnea:
[2025-06-20 10:54] LABS: ESTIMATED AVERAGE GLUCOSE 151 mg/dL (70-100); HEMOGLOBIN A1c% 6.9 % (4.27-6.07)
--- NOTE | 2025-06-20 12:05 | PROVIDER PROGRESS NOTE ---
Subjective Prog Note Date Prog Note Date: 06/20/25 Subjective Subjective: He is doing well and feels so much better. right flank pain is much improved, was able to get back and forth to the bathroom with minimal to no discomfort. Current Medications Current Medications Current Medications: Current Medications Generic Name Dose Route Start Last Admin Trade Name Freq PRN Reason Stop Dose Admin Acetaminophen 650 mg 06/19/25 13:21 Acetaminophen 325 Mg Tablet PO Q4HR PRN Pain 1 to 4, or Fever Ampicillin Sodium/Sulbactam 100 mls @ 200 mls/hr 06/19/25 18:00 06/20/25 11:28 Sodium 1.5 gm/ Sodium Chloride IV 200 mls/hr Q6H KARON Administration Ondansetron HCl 4 mg 06/19/25 13:21 Ondansetron Odt 4 Mg Tablet TL Q6HR PRN Nausea / Vomiting Oxycodone HCl 5 mg 06/19/25 13:21 Oxycodone 5 Mg Tablet PO Q4HR PRN Pain 5 to 7 Sodium Chloride 10 ml 06/19/25 13:21 Sodium Chloride Flush 0.9% 10 Ml Syringe IVP PRN PRN NEEDED PER PROVIDER ORDERS Sodium Chloride 10 ml 06/19/25 17:00 06/20/25 08:38 Sodium Chloride Flush 0.9% 10 Ml Syringe IVP 10 ml 0100,0900,1700 KARON Administration Tamsulosin HCl 0.4 mg 06/20/25 20:00 Tamsulosin 0.4 Mg Capsule PO DAILY KARON Objective Vital Signs/Intake & Output Reviewed Vital Signs: Yes Vital Signs: Vital Signs x48h Temp Pulse Resp BP Pulse Ox 06/20/25 10:24 36.5 C 06/20/25 09:00 36.1 C L 92 16 121/73 98 Intake & Output: Intake & Output 06/17/25 06/18/25 06/19/25 06/20/25 23:59 23:59 23:59 23:59 Intake Total 1200 / 1200 200 / 200 Output Total 1050 / 1050 325 / 325 Balance 150 / 150 -125 / -125 Weight (kg) 95.5 kg Objective General Appearance: positive No acute distress and Alert ENT: positive ENT inspection nml Neck: positive Nml inspection Respiratory: positive No respiratory distress and Breath sounds nml Cardiovascular: positive Regular rate & rhythm Abdomen: positive No distention Back: negative CVA tenderness (R) Skin: positive Color nml Neurologic/Psychiatric: positive Oriented x3 Lab Results 06/20/25 05:40 06/20/25 05:40 Other Labs: Lab Results x24hrs 06/20/25 06/19/25 Range/Units 05:40 12:21 WBC 6.2 (4.8-10.8) x10^3/uL RBC 3.56 L (4.70-6.10) 10^6/uL Hgb 11.2 L (14.0-18.0) g/dL Hct 33.3 L (42.0-52.0) % MCV 93.5 (80.0-94.0) fL MCH 31.5 H (27.0-31.0) pg MCHC 33.6 (32.0-36.0) g/dL RDW 13.9 (12.0-15.0) % Plt Count 134 (130-450) 10^3/uL MPV 10.1 (7.4-11.4) fL Neut # (Auto) 4.1 (1.5-6.6) 10^3/uL Lymph # (Auto) 1.3 L (1.5-3.5) 10^3/uL [place] # (Auto) 0.7 (0.0-1.0) 10^3/uL Eos # (Auto) 0.0 (0.0-0.7) 10^3/uL Baso # (Auto) 0.0 (0.0-0.1) 10^3/uL Absolute Nucleated RBC 0.00 x10^3/uL Nucleated RBC % 0.0 /100WBC Sodium 133 L (135-145) mmol/L Potassium 4.2 (3.5-4.5) mmol/L Chloride 106 (101-111) mmol/L Carbon Dioxide 21 (21-32) mmol/L Anion Gap 6.0 (6-13) BUN 17 (6-20) mg/dL Creatinine 1.1 (0.6-1.3) mg/dL Estimated GFR (MDRD) 66 L (>89) Glucose 116 H (74-104) mg/dL Lactic Acid 1.9 (0.5-2.2) mmol/L Calcium 8.2 L (8.5-10.3) mg/dL Assessment/Plan Problem List (1) Bacteremia: Impression: Enterococcus Faecalis bacteremia on blood cultures done on 06/16. Patient has been on Cipro in the outpatient environment. This bacteria shows significant resistance to Cipro. Edil has gram positive bacteremia. He should have IV abx and should be screened for valvular vegetations w echocardiogram. He is symptomatic from a subjective standpoint with weakness and decreased activity tolerance. His lactic acid level is normal, and he does not have objective evidence of fever, although at home has been having some "spells". Feeling better overnight on Unasyn therapy. Echo is done, not read. He was educated about PICC and home vs MAC for abx. SW will meet with him. I have spoken with Jayme Ulloa CRNA, and anesthesia team can place PICC on Sunday. Repeat blood cultures 06/19 NGTD (2) Acute hypotension: Impression: resolved. (3) Acute urinary retention: Impression: PVR 344ml. Patient with hx BPH and states that he is having urinary frequency and hesitancy at home with small volumes of urination, occasional gross hematuria. I think this is acute on chronc retention. Reviewed CT A/P with Dr Lorenzana, urology on 06/19. he is not concerned about the lower pole non obstructive stone- likely is sequela from recent urological procedures and large stone at left renal pelvis. [place] in place. Void trial on 06/21. discussed with Urology, Dr Lorenzana, today, and he recommends tamsulosin, whic his ordred for tonight. (4) Atrial fibrillation: Impression: last cardiology note mentions possible ablation procedure, but no record of completion of that. Spoke with patient and he states that he was ready for the ablation and the decision was made not to do it. So that procedure was not completed. This was about February of this year. he is on Eliquis and metoprolol, but med rec is not complete at this time. He has been here for 24 hours, therefore I am starting the doses as listed on med rec at ut on 05/19/25. Qualifiers: Atrial fibrillation type: unspecified chronic Qualified Code(s): I48.20 - Chronic atrial fibrillation, unspecified (5) CKD stage 3a, GFR 45-59 ml/min: Impression: Cr improved overnight to 1.1 from 1.4 with treatment of bacteremia. (6) Prediabetes: Impression: A1C pending right now. (7) Controlled familial obstructive sleep apnea: Impression: Has home CPAP at bedside. using this. This patient's diagnosis and treatment plan was discussed this AM with attending physician as a part of multi disciplinary rounding meeting. Wanted to complete POLST, but patient wants spouse at bedside to do this, and I have not been able to catch her today. I have spent 52 minutes in the care of this patient today. This includes time [id number], review and ordering of diagnostic imaging and laboratory studies and consultation with other providers. Monitoring the patient's signs symptoms, evaluation of medication effectiveness and patient's response to treatment.
[2025-06-20] MEDS: METOPROLOL SUCCINATE 50 MG TABLET PO SCH (12:57)
--- NOTE | 2025-06-20 16:02 | ECHO Report ---
Version: 1 Study ID: [id number] [id number] Adult Echocardiogram Report Name: LORETO DOUGLAS Study Date: 06/19/2025, 4: 04 PM BP: 119 / 66 mmHg Patient [place] [facility] [id number] HR: 83 bpm : 1955 (MM/DD/YYYY) Gender: Male Height: 72 in Age: 69 Years Weight: 210 lb BSA: 2.18 m² Reason For Study: gram positive bacteremia History: CKD stage III, A-Fib. Pacemakr implant. Interpretation Summary The visual left ventricular ejection fraction is estimated at 60 to 65%. Global left ventricular systolic function is normal. The right ventricular systolic function is normal. A pacer/defibrillator lead is present in the right heart. No concerning cardiac valve disease is noted. Left Ventricle: The left ventricle is grossly normal size. The left ventricular apex is not well visualized. The visual left ventricular ejection fraction is estimated at 60 to 65%. Global left ventricular systolic function is normal. Assessment of left ventricular filling pressure is indeterminate. Right Ventricle: The right ventricle is borderline dilated. TAPSE is consistent with normal right ventricular function. The tricuspid annular plane systolic excursion (TAPSE) measurement is 2.1 cm. The right ventricular systolic function is normal. A pacer/defibrillator lead is present in the right heart. Aortic Valve: The aortic valve is not well visualized. The aortic valve is normal in structure and function. No hemodynamically significant valvular aortic stenosis. Mild aortic regurgitation is present. Mitral Valve: The mitral valve leaflets are mildly calcified. Mild mitral annular calcification is present. No evidence of mitral stenosis is seen. There is mild mitral regurgitation. Tricuspid Valve: The tricuspid valve is normal in structure and function. There is no tricuspid stenosis. Trace tricuspid regurgitation present. Pulmonic Valve: The pulmonic valve is normal in structure and function. There is no pulmonic valvular stenosis. Trace pulmonic valvular regurgitation is present. Left Atrium: The left atrium is moderately to severely dilated. Right Atrium: Right atrial size is normal. The inferior vena cava appears normal. Atrial Septum: The interatrial septum is not well seen. Interatrial shunt cannot be excluded. Aorta: The ascending aorta is normal in size. The transverse arch is normal in size. The sinuses of Valsalva are normal in size. Pulmonary Artery: The pulmonary artery is not well visualized, but is probably normal size. The pulmonary artery systolic pressure is normal. Inferior vena cava dynamics indicate normal right atrial pressures. The right ventricular systolic pressure is 25mmHg. Pericardium/Pleural Space: There is no pericardial effusion. Left Ventricle IVSd: 1.10 cm LVIDd: 5.6 cm LVPWd: 1.10 cm LVIDs: 3.8 cm ESV(sp4-el): 108.7 ml Right Ventricle TAPSE: 2.11 cm RV S Finn: 14.7 cm/sec Atria LA dimension: 5.8 cm LAV(MOD-sp4): 106.0 ml LAV(MOD-sp2): 100.9 ml Diastolic Function MV dec time: 0.23 sec MV E max finn: 64.2 cm/sec MV A max finn: 39.5 cm/sec Aortic Valve LVOT diam: 2.26 cm LV V1 mean P.1 mmHg LV V1 mean: 94.5 cm/sec LV V1 VTI: 27.7 cm Ao V2 VTI: 34.3 cm Ao mean P.2 mmHg Ao V2 mean: 115.6 cm/sec LV V1 max: 130.7 cm/sec LV V1 max P.8 mmHg Ao max P.2 mmHg Ao V2 max: 167.2 cm/sec Tricuspid Valve TR max P.1 mmHg TR max finn: 235.0 cm/sec TV max P.1 mmHg Aorta Ao root diam: 3.7 cm MMode/2D Measurements & Calculations Ao root diam: 3.7 cm BMI: 28.5 kilograms/m² BSA([facility], [place]): 2.22 m² ESV(sp4-el): 108.7 ml IVSd: 1.10 cm LA A4C-A/L: 27.3 cm² LA dimension: 5.8 cm LA ESV-A/L: 104.8 ml LA Vol Index: 51.1 ml/m² LAV(MOD-sp2): 100.9 ml LAV(MOD-sp4): 106.0 ml LVIDd: 5.6 cm LVIDs: 3.8 cm LVOT diam: 2.26 cm LVPWd: 1.10 cm RA A4Cs: 17.8 cm² TAPSE: 2.11 cm Doppler Measurements & Calculations Ao max P.2 mmHg Ao mean P.2 mmHg Ao V2 max: 167.2 cm/sec Ao V2 mean: 115.6 cm/sec Ao V2 VTI: 34.3 cm Lat E/e': 9.7 LV V1 max: 130.7 cm/sec LV V1 max P.8 mmHg LV V1 mean: 94.5 cm/sec LV V1 mean P.1 mmHg LV V1 VTI: 27.7 cm Med E/e': 10.8 MV A max finn: 39.5 cm/sec MV dec time: 0.23 sec MV DVI-pr: 1.62 MV E max finn: 64.2 cm/sec PA max P.0 mmHg PA V2 max: 86.9 cm/sec RV S Finn: 14.7 cm/sec TR max P.1 mmHg TR max finn: 235.0 cm/sec TV max P.1 mmHg Other Measurements & Calculations Ao root area: 10.9 cm² TSIH(I,D): 3.2 cm² TISH(V,D): 3.1 cm² EDV(Teich): 154.1 ml EF(sp-el): 50.0 % EF(Teich): 60.9 % ESV(Teich): 60.2 ml FS: 33.0 % LVOT area: 4.0 cm² MV E/A: 1.62 SV(LVOT): 111.4 ml MD Delfina Klein 06/20/2025, 4: 02 PM Ordering Physician: Valorie Bradshaw Referring Physician: Shashi Briseno Performed By: EVAN
[2025-06-20] MEDS: TAMSULOSIN 0.4 MG CAPSULE PO SCH (20:14)
[2025-06-20] MEDS: PRAZOSIN 1 MG CAPSULE PO SCH (20:14)
[2025-06-20] MEDS: ATORVASTATIN 10 MG TABLET PO SCH (20:14)
[2025-06-20] MEDS: APIXABAN 5 MG TABLET PO SCH (20:14)
[2025-06-20] MEDS ORDERED: ALFUZOSIN 10 MG PO SCH (21:00)
[2025-06-21 05:49] LABS: HCT - HEMATOCRIT 32.5 % (42.0-52.0); HGB - HEMOGLOBIN 10.9 g/dL (14.0-18.0); MEAN PLATELET VOLUME 10.1 fL (7.4-11.4); NRBC ABSOLUTE COUNT (AUTO) 0.00 x10^3/uL; NUCLEATED RED BLOOD CELLS AUTO 0.0 /100WBC; PLT - PLATELET COUNT 135 10^3/uL (130-450); RED CELL DISTRIBUTION WIDTH 13.9 % (12.0-15.0)
[2025-06-21 06:04] LABS: BUN - BLOOD UREA NITROGEN 16.0 mg/dL (6-20); CARBON DIOXIDE - CO2 22.0 mmol/L (21-32); CREATININE 1.0 mg/dL (0.6-1.3); GFR - MDRD 74.0 (>89)
[2025-06-21] MEDS: CITALOPRAM 10 MG TABLET PO SCH (09:00)
--- NOTE | 2025-06-21 12:25 | PROVIDER PROGRESS NOTE ---
Subjective Prog Note Date Prog Note Date: 06/21/25 Subjective Subjective: not feeling as well today. yesterday felt much better. Just more fatigued and harder to move around today. No fevers or increasing peripheral edema Current Medications Current Medications Current Medications: Current Medications Generic Name Dose Route Start Last Admin Trade Name Freq PRN Reason Stop Dose Admin Acetaminophen 650 mg 06/19/25 13:21 Acetaminophen 325 Mg Tablet PO Q4HR PRN Pain 1 to 4, or Fever Allopurinol 100 mg 06/20/25 21:00 06/20/25 20:14 Allopurinol 100 Mg Tablet PO 100 mg QPM KARON Administration Apixaban 5 mg 06/20/25 21:00 06/21/25 09:00 Apixaban 5 Mg Tablet PO 5 mg BID KARON Administration Atorvastatin Calcium 20 mg 06/20/25 21:00 06/20/25 20:14 Atorvastatin 10 Mg Tablet PO 20 mg QPM KARON Administration Bupropion HCl 300 mg 06/21/25 09:00 06/21/25 09:00 Bupropion Xl 150 Mg Tablet PO 300 mg DAILY KARON Administration Citalopram Hydrobromide 10 mg 06/21/25 09:00 06/21/25 09:00 Citalopram 10 Mg Tablet PO 10 mg DAILY KARON Administration Ampicillin Sodium/Sulbactam 100 mls @ 200 mls/hr 06/19/25 18:00 06/21/25 11:43 Sodium 1.5 gm/ Sodium Chloride IV 200 mls/hr Q6H KARON Administration Metoprolol Succinate 50 mg 06/20/25 13:00 06/21/25 09:00 Metoprolol Succinate 50 Mg Tablet PO 50 mg BID KARON Administration Ondansetron HCl 4 mg 06/19/25 13:21 Ondansetron Odt 4 Mg Tablet TL Q6HR PRN Nausea / Vomiting Oxycodone HCl 5 mg 06/19/25 13:21 Oxycodone 5 Mg Tablet PO Q4HR PRN Pain 5 to 7 Prazosin HCl 1 mg 06/20/25 21:00 06/20/25 20:14 Prazosin 1 Mg Capsule PO 1 mg HS KARON Administration Sodium Chloride 10 ml 06/19/25 13:21 Sodium Chloride Flush 0.9% 10 Ml Syringe IVP PRN PRN NEEDED PER PROVIDER ORDERS Sodium Chloride 10 ml 06/19/25 17:00 06/21/25 09:00 Sodium Chloride Flush 0.9% 10 Ml Syringe IVP 10 ml 0100,0900,1700 KARON Administration Tamsulosin HCl 0.4 mg 06/20/25 20:00 06/20/25 20:15 Tamsulosin 0.4 Mg Capsule PO 0.4 mg HS KARON Administration Objective Vital Signs/Intake & Output Reviewed Vital Signs: Yes Vital Signs: Vital Signs x48h Temp Pulse Resp BP Pulse Ox 06/21/25 08:58 36.2 C L 91 18 130/72 100 Intake & Output: Intake & Output 06/18/25 06/19/25 06/20/25 06/21/25 23:59 23:59 23:59 23:59 Intake Total 1200 / 1200 1080 / 1080 750 / 750 Output Total 1050 / 1050 1050 / 1050 350 / 350 Balance 150 / 150 30 / 30 400 / 400 Weight (kg) 95.5 kg Objective General Appearance: positive No acute distress and Alert ENT: positive ENT inspection nml Neck: positive Nml inspection Respiratory: positive No respiratory distress and Breath sounds nml Cardiovascular: positive Regular rate & rhythm Abdomen: positive No distention Back: negative CVA tenderness (R) Skin: positive Color nml Neurologic/Psychiatric: positive Oriented x3 Lab Results 06/21/25 05:30 06/21/25 05:30 Other Labs: Lab Results x24hrs 06/21/25 06/20/25 Range/Units 05:30 05:40 WBC 6.1 (4.8-10.8) x10^3/uL RBC 3.42 L (4.70-6.10) 10^6/uL Hgb 10.9 L (14.0-18.0) g/dL Hct 32.5 L (42.0-52.0) % MCV 95.0 H (80.0-94.0) fL MCH 31.9 H (27.0-31.0) pg MCHC 33.5 (32.0-36.0) g/dL RDW 13.9 (12.0-15.0) % Plt Count 135 (130-450) 10^3/uL MPV 10.1 (7.4-11.4) fL Neut # (Auto) 3.9 (1.5-6.6) 10^3/uL Lymph # (Auto) 1.3 L (1.5-3.5) 10^3/uL [place] # (Auto) 0.7 (0.0-1.0) 10^3/uL Eos # (Auto) 0.1 (0.0-0.7) 10^3/uL Baso # (Auto) 0.0 (0.0-0.1) 10^3/uL Absolute Nucleated RBC 0.00 x10^3/uL Nucleated RBC % 0.0 /100WBC Sodium 134 L (135-145) mmol/L Potassium 3.9 (3.5-4.5) mmol/L Chloride 106 (101-111) mmol/L Carbon Dioxide 22 (21-32) mmol/L Anion Gap 6.0 (6-13) BUN 16 (6-20) mg/dL Creatinine 1.0 (0.6-1.3) mg/dL Estimated GFR (MDRD) 74 L (>89) Glucose 135 H (74-104) mg/dL Estimat Average Glucose 151 H (70-100) mg/dL Hemoglobin A1c % 6.9 H (4.27-6.07) % Calcium 8.3 L (8.5-10.3) mg/dL Assessment/Plan Problem List (1) Bacteremia: Impression: Enterococcus Faecalis bacteremia on blood cultures done on 06/16. Patient has been on Cipro in the outpatient environment. This bacteria shows significant resistance to Cipro. Edil has gram positive bacteremia. He is symptomatic from a subjective standpoint with weakness and decreased activity tolerance. His lactic acid level is normal, and he does not have objective evidence of fever, although at home has been having some "spells". Continuing on Unasyn therapy. Echo is essentially normal. no valve vegetations. LVEF is 60-65%. He was educated about PICC and home vs MAC for abx. SW will meet with him. I have spoken with Jayme Ulloa CRNA, and anesthesia team can place PICC on Sunday. Repeat blood cultures 06/19, drawn at presentation to ED are positive for Enterococcus, ID And sens are pending. (2) Acute hypotension: Impression: resolved. (3) Acute urinary retention: Impression: PVR 344ml. Patient with hx BPH and states that he is having urinary frequency and hesitancy at home with small volumes of urination, occasional gross hematuria. I think this is acute on chronc retention. Reviewed CT A/P with Dr Lorenzana, urology on 06/19. he is not concerned about the lower pole non obstructive stone- likely is sequela from recent urological procedures and large stone at left renal pelvis. [place] in place. Void trial on 06/22. He has been started on tamsulosin per urology recommendations. (4) Atrial fibrillation: Impression: last cardiology note mentions possible ablation procedure, but no record of completion of that. Spoke with patient and he states that he was ready for the ablation and the decision was made not to do it. So that procedure was not completed. This was about February of this year. he is on Eliquis and metoprolol, but med rec is not complete at this time. He has been here for 24 hours, therefore I am starting the doses [facility]. Qualifiers: Atrial fibrillation type: unspecified chronic Qualified Code(s): I48.20 - Chronic atrial fibrillation, unspecified (5) CKD stage 3a, GFR 45-59 ml/min: Impression: Cr improved with hydration and treatment of his bacteremia. (6) Prediabetes: Impression: A1C pending right now. (7) Controlled familial obstructive sleep apnea: Impression: Has home CPAP at bedside. using this. This patient's diagnosis and treatment plan was discussed this AM with attending physician as a part of multi disciplinary rounding meeting. Needs to complete POLST this admission. I have spent 38 minutes in the care of this patient today. This includes time [id number], review and ordering of diagnostic imaging and laboratory studies and consultation with other providers. Monitoring the patient's signs symptoms, evaluation of medication effectiveness and patient's response to treatment.
--- NOTE | 2025-06-21 13:31 | PHARMACY PROGRESS NOTE ---
Best Possible Medication History Admit Date and Time: 06/19/25 1226 Home Medications Medication Instructions Recorded Confirmed Type bupropion HCl 300 mg 24 hr tablet, 300 mg PO DAILY 01/2306/20/25 History extended release (Wellbutrin XL) citalopram 10 mg tablet 10 mg PO DAILY 08/07/2306/03 History prazosin 1 mg capsule See Rx Instructions .Route 1 10/13/23 06/20/25 Rx .COMPLEX #90 caps alfuzosin 10 mg tablet,extended 10 mg PO HS #30 tabs 0 05/14/25 06/20/25 Rx release 24 hr allopurinol 100 mg tablet 100 mg PO QPM 05/16/2506/20 History apixaban 5 mg tablet (Eliquis) 5 mg PO BID 05/16/25 History atorvastatin 20 mg tablet 20 mg PO QPM 05/16/25 History metoprolol succinate 50 mg 50 mg PO BID 05/16/2506/20 History tablet,extended release 24 hr ondansetron 4 mg disintegrating 4 mg PO Q8H PRN nausea and 05/28/25 06/21/25 Rx tablet vomiting #14 tabs gabapentin 100 mg capsule 100 mg PO TID PRN pain 05/2906/21/25 History oxycodone-acetaminophen 5 mg-325 1 tab PO Q12H PRN jill n #10 tabs 06/02/25 06/20/25 Rx mg tablet (Percocet) oxycodone 5 mg tablet 5 mg PO Q4H PRN Pain #10 tab s 06/08/25 06/20/25 Rx ciprofloxacin HCl 500 mg tablet 500 mg PO BID #14 tabs 06/10/25 06/20/25 Rx tamsulosin 0.4 mg capsule 0.4 mg PO Q24H 06/20/2506/03 History Processed by: Pharmacy Medications reviewed in ED?: Yes Medication History completed: Yes Patient Interview: Completed Secondary Source(s): Insurance records [facility] Statement: As the person ultimately responsible for medication therapy, providers are able to order a medication from an existing home medication list in [facility] via the "Reconcile Routine" prior to Confirmation of that medication by contracting support specialist. Such practice is discouraged except when the physician, in their clinical judgment, deems that a medical need exists for a medication without regard to previous use.
[2025-06-22 04:57] LABS: HCT - HEMATOCRIT 33.2 % (42.0-52.0); HGB - HEMOGLOBIN 11.2 g/dL (14.0-18.0); MEAN PLATELET VOLUME 10.1 fL (7.4-11.4); NRBC ABSOLUTE COUNT (AUTO) 0.00 x10^3/uL; NUCLEATED RED BLOOD CELLS AUTO 0.0 /100WBC; PLT - PLATELET COUNT 143 10^3/uL (130-450); RED CELL DISTRIBUTION WIDTH 14.1 % (12.0-15.0)
[2025-06-22 05:22] LABS: BUN - BLOOD UREA NITROGEN 13.0 mg/dL (6-20); CARBON DIOXIDE - CO2 23.0 mmol/L (21-32); CREATININE 1.0 mg/dL (0.6-1.3); GFR - MDRD 74.0 (>89)
[2025-06-22] MEDS: SODIUM CHLORIDE FLUSH 0.9% 10 ML SYRINGE IVP PRN (06:11)
--- NOTE | 2025-06-22 13:37 | XRAY Report ---
PROCEDURE: XR Chest for Line Placement INDICATIONS: PICC line placement TECHNIQUE: One view of the chest was acquired. COMPARISON: 06/16/2025 FINDINGS: Surgical changes and devices: Left chest wall generator with cardiac leads. Right upper extremity approach PICC tip projects over the mid SVC. Lungs and pleura: No pleural effusions or pneumothorax. No consolidation. Mediastinum: Mediastinal contours appear normal. Heart size is normal. Bones and chest wall: No suspicious bony lesions. Overlying soft tissues appear unremarkable. IMPRESSION: Right upper extremity approach PICC tip projects over the mid SVC. Reviewed by: Primo Shaikh MD on 06/22/2025 1:34 PM PDT Approved by: Primo Shaikh MD on 06/22/2025 1:34 PM PDT Station ID: [id number]
--- NOTE | 2025-06-22 13:47 | ANESTHESIA PROCEDURE NOTE ---
Anesth Central Line Template Central Line Central Line Preparation: Consent Obtained Central line location: Right Basilic Central line type: PICC Single Lumen Central line catheter tip site resides: Superior vena cava (SVC) Central line aftercare: Placement confirmed (by VPS ), No complications and Pt tolerated well Other Info/Details: 4.5 fr single lumen, trimmed at 50, 48 in and 2 exposed.
--- NOTE | 2025-06-22 15:25 | PROVIDER PROGRESS NOTE ---
Subjective Prog Note Date Prog Note Date: 06/22/25 Subjective Subjective: Feel better this afternoon. his and friend are coming to visit. Current Medications Current Medications Current Medications: Current Medications Generic Name Dose Route Start Last Admin Trade Name Freq PRN Reason Stop Dose Admin Acetaminophen 650 mg 06/19/25 13:21 Acetaminophen 325 Mg Tablet PO Q4HR PRN Pain 1 to 4, or Fever Allopurinol 100 mg 06/20/25 21:00 06/21/25 19:43 Allopurinol 100 Mg Tablet PO 100 mg QPM KARON Administration Apixaban 5 mg 06/20/25 21:00 06/22/25 08:49 Apixaban 5 Mg Tablet PO 5 mg BID KARON Administration Atorvastatin Calcium 20 mg 06/20/25 21:00 06/21/25 19:42 Atorvastatin 10 Mg Tablet PO 20 mg QPM KARON Administration Bupropion HCl 300 mg 06/21/25 09:00 06/22/25 08:50 Bupropion Xl 150 Mg Tablet PO 300 mg DAILY KARON Administration Citalopram Hydrobromide 10 mg 06/21/25 09:00 06/22/25 08:49 Citalopram 10 Mg Tablet PO 10 mg DAILY KARON Administration Ampicillin Sodium/Sulbactam 100 mls @ 200 mls/hr 06/19/25 18:00 06/22/25 13:51 Sodium 1.5 gm/ Sodium Chloride IV Infused Q6H KARON Infusion Metoprolol Succinate 50 mg 06/20/25 13:00 06/22/25 08:49 Metoprolol Succinate 50 Mg Tablet PO 50 mg BID KARON Administration Ondansetron HCl 4 mg 06/19/25 13:21 Ondansetron Odt 4 Mg Tablet TL Q6HR PRN Nausea / Vomiting Oxycodone HCl 5 mg 06/19/25 13:21 Oxycodone 5 Mg Tablet PO Q4HR PRN Pain 5 to 7 Prazosin HCl 1 mg 06/20/25 21:00 06/21/25 19:42 Prazosin 1 Mg Capsule PO 1 mg HS KARON Administration Sodium Chloride 10 ml 06/19/25 13:21 06/22/25 06:11 Sodium Chloride Flush 0.9% 10 Ml Syringe IVP 10 ml PRN PRN Administration NEEDED PER PROVIDER ORDERS Sodium Chloride 10 ml 06/19/25 17:00 06/22/25 08:50 Sodium Chloride Flush 0.9% 10 Ml Syringe IVP 10 ml 0100,0900,1700 KARON Administration Tamsulosin HCl 0.4 mg 06/20/25 20:00 06/21/25 19:42 Tamsulosin 0.4 Mg Capsule PO 0.4 mg HS KARON Administration Objective Vital Signs/Intake & Output Reviewed Vital Signs: Yes Vital Signs: Vital Signs x48h Temp Pulse Resp BP Pulse Ox O2 Flow Rate 06/22/25 07:58 36.5 C 63 17 113/61 99 0 Intake & Output: Intake & Output 06/19/25 06/20/25 06/21/25 06/22/25 23:59 23:59 23:59 23:59 Intake Total 1200 / 1200 1080 / 1080 2210 / 2210 800 / 800 Output Total 1050 / 1050 1050 / 1050 900 / 900 400 / 400 Balance 150 / 150 30 / 30 1310 / 1310 400 / 400 Weight (kg) 95.5 kg Objective General Appearance: positive No acute distress and Alert ENT: positive ENT inspection nml Neck: positive Nml inspection Respiratory: positive No respiratory distress and Breath sounds nml Cardiovascular: positive Regular rate & rhythm Abdomen: positive No distention Back: negative CVA tenderness (R) Skin: positive Color nml Neurologic/Psychiatric: positive Oriented x3 Lab Results 06/22/25 04:51 06/22/25 04:51 Other Labs: Lab Results x24hrs 06/22/25 Range/Units 04:51 WBC 5.3 (4.8-10.8) x10^3/uL RBC 3.48 L (4.70-6.10) 10^6/uL Hgb 11.2 L (14.0-18.0) g/dL Hct 33.2 L (42.0-52.0) % MCV 95.4 H (80.0-94.0) fL MCH 32.2 H (27.0-31.0) pg MCHC 33.7 (32.0-36.0) g/dL RDW 14.1 (12.0-15.0) % Plt Count 143 (130-450) 10^3/uL MPV 10.1 (7.4-11.4) fL Neut # (Auto) 3.3 (1.5-6.6) 10^3/uL Lymph # (Auto) 1.3 L (1.5-3.5) 10^3/uL [place] # (Auto) 0.7 (0.0-1.0) 10^3/uL Eos # (Auto) 0.1 (0.0-0.7) 10^3/uL Baso # (Auto) 0.0 (0.0-0.1) 10^3/uL Absolute Nucleated RBC 0.00 x10^3/uL Nucleated RBC % 0.0 /100WBC Sodium 136 (135-145) mmol/L Potassium 4.1 (3.5-4.5) mmol/L Chloride 107 (101-111) mmol/L Carbon Dioxide 23 (21-32) mmol/L Anion Gap 6.0 (6-13) BUN 13 (6-20) mg/dL Creatinine 1.0 (0.6-1.3) mg/dL Estimated GFR (MDRD) 74 L (>89) Glucose 115 H (74-104) mg/dL Calcium 8.2 L (8.5-10.3) mg/dL Assessment/Plan Problem List (1) Bacteremia: Impression: Enterococcus Faecalis bacteremia on blood cultures done on 06/16. Patient has been on Cipro in the outpatient environment. This bacteria shows significant resistance to Cipro. Edil has gram positive bacteremia. He is symptomatic from a subjective standpoint with weakness and decreased activity tolerance. His lactic acid level is normal, and he does not have objective evidence of fever, although at home has been having some "spells". Continuing on Unasyn therapy. Echo is essentially normal. no valve vegetations. LVEF is 60-65%. He was educated about PICC and home vs MAC for abx. PICC line has been placed today. I have spoken with his primary care physician today and requested the appropriate paperwork be completed so that we can get antibiotics authorized for outpatient. He should be on parenteral antibiotics through 07/03. This would complete 2 weeks of therapy. The plan is for daptomycin therapy. [facility] Repeat blood cultures 06/19, drawn at presentation to ED are positive for Enterococcus,Faecalis, pansensitive. Conversation with patient today. Because he thinks his also has this bacteria. I explained to him that indeed his does have this bacteria; it should be in her gut. He is concerned because his has recurrent urinary tract infections. I explained to him that I do not think that his bacteremia will cause her to have a urinary tract infection. He is insistent that his should be tested. I recommended to him that she go through her primary care provider. He states that he would like her to be seen by Dr. Lorenzana. I am certain that she can make an appointment. She has seen Dr Lorenzana previously (2) Acute hypotension: Impression: resolved. (3) Acute urinary retention: Impression: PVR 344ml. Patient with hx BPH and states that he is having urinary frequency and hesitancy at home with small volumes of urination, occasional gross hematuria. I think this is acute on chronc retention. Reviewed CT A/P with Dr Lorenzana, urology on 06/19. he is not concerned about the lower pole non obstructive stone- likely is sequela from recent urological procedures and large stone at left renal pelvis. [place] in place. Void trial on 06/22. He has been started on tamsulosin per urology recommendations. He has been able to void without difficulty. (4) Atrial fibrillation: Impression: last cardiology note mentions possible ablation procedure, but no record of completion of that. Spoke with patient and he states that he was ready for the ablation and the decision was made not to do it. So that procedure was not completed. This was about February of this year. Eliquis and metoprolol are restarted. Qualifiers: Atrial fibrillation type: unspecified chronic Qualified Code(s): I48.20 - Chronic atrial fibrillation, unspecified (5) CKD stage 3a, GFR 45-59 ml/min: Impression: Cr improved with hydration and treatment of his bacteremia. Laboratory Tests 06/19/25 06/20/25 06/21/25 11:07 05:40 05:30 Creatinine 1.4 H 1.1 1.0 06/22/25 04:51 Creatinine 1.0 (6) Prediabetes: Impression: Laboratory Tests 06/20/25 05:40 Hemoglobin A1c % 6.9 H This patient qualifies for diagnosis of diabetes at this time. I would recommend primary care follow-up and discussion of initiation of antihyperglycemic treatment. (7) Controlled familial obstructive sleep apnea: Impression: Has home CPAP at bedside. using this. T (8) Pacemaker: Impression: Not impacting his care at this time, but should be noted that it is present. his patient's diagnosis and treatment plan was discussed this AM with attending physician as a part of multi disciplinary rounding meeting. Needs to complete POLST this admission. The services been offered several times. I have spent 45 minutes in the care of this patient today. This includes time [id number], review and ordering of diagnostic imaging and laboratory studies and consultation with other providers. Monitoring the patient's signs symptoms, evaluation of medication effectiveness and patient's response to treatment.
[2025-06-23 06:11] LABS: HCT - HEMATOCRIT 31.2 % (42.0-52.0); HGB - HEMOGLOBIN 10.6 g/dL (14.0-18.0); MEAN PLATELET VOLUME 9.8 fL (7.4-11.4); NRBC ABSOLUTE COUNT (AUTO) 0.00 x10^3/uL; NUCLEATED RED BLOOD CELLS AUTO 0.0 /100WBC; PLT - PLATELET COUNT 138 10^3/uL (130-450); RED CELL DISTRIBUTION WIDTH 14.0 % (12.0-15.0)
[2025-06-23 06:25] LABS: BUN - BLOOD UREA NITROGEN 13.0 mg/dL (6-20); CARBON DIOXIDE - CO2 24.0 mmol/L (21-32); CREATININE 1.1 mg/dL (0.6-1.3); GFR - MDRD 66.0 (>89)
[2025-06-23 10:23] VITALS: TEMP 97.9
--- NOTE | 2025-06-23 11:58 | Discharge Summary ---
Discharge Summary Admit Date: 06/19/25 Discharge Date: 06/23/25 Discharging Provider: Valorie Bradshaw PA-C Primary Care Provider: Viktoria You MD DIAGNOSES Discharge Diagnoses with Status of Each Condition: Bacteremia, Enterococcus faecalis. Treated Hypotension, resolved Acute urinary retention, resolved Atrial fibrillation, chronic and controlled Chronic kidney disease stage IIIa, chronic Prediabetes, hemoglobin A1c 6.9% needs primary care follow-up Sleep apnea chronic and controlled History of pacemaker HPI History of Present Illness: 69M w BPH, depression, chronic back pain , alcoholic cirrhosis s/p TIPS , hx of penile implant and recent admission for kidney stone accompanied by Enterococcus UTI presents to the emergency department stating he was told to come for positive blood cultures. He has been seen by urology and underwent cystoscopy, left ureteroscopy, lithotripsy and stent placement on the left on 06/08/25. At home he has been feeling weak and tired. He has been having pain, mainly back pain and has gotten multiple rx's for oxycodone for this, 68 tablets in the last month in this patient who normally does not take narcotics. He was discharged from his last hospitalization with a course of Cipro. Was to take this through 05/23. Seen in the emergency department on the , and of this month for complaints of generalized weakness. He had been placed on Cipro in the outpatient environment this month as well. For total of 7 days. However, Enterococcus faecalis can be resistant to Cipro. He is also having some chills at home. general body aches. tea colored urine with urinary frequency, and hesitancy. right flank pain. no abdominal pain, no bowel complaints. Cardiac hx: a fib and pacemaker for sick sinus syndrome. Dr Benjamin is councilor. Cardiololgy notes revewied from February 2025. he was placed on Eliquis and decision was made for catheter ablation of a flutter. Normal myocardial perfusion scan in February of 2025. Echo with normal EF May 2024. Dr You is his business planning analyst. She last saw him in July 2024. Hx pre DM (A1C 6.4% Jul 2024), CKD 3a, Cr 1.3, as well as gout. is surrogate decision maker. Patient does not have POLST. DNR, intubation OK. Introduced POLST form to patient at bedside. His is not currently present. We went over the options and best choice for him will likely be DNR full treatment. HOSPITAL COURSE Hospital Course: Bacteremia: Enterococcus Faecalis bacteremia on blood cultures done on 06/16. Patient has been on Cipro in the outpatient environment. This bacteria shows significant resistance to Cipro. Edil has gram positive bacteremia. He is symptomatic from a subjective standpoint with weakness and decreased activity tolerance. His lactic acid level is normal, and he does not have objective evidence of fever, although at home has been having some "spells". . Echo is essentially normal. no valve vegetations. LVEF is 60-65%. He was educated about PICC and home vs MAC for abx. PICC line has been placed I have spoken with his primary care physician today and requested the appropriate paperwork be completed so that we can get antibiotics authorized for outpatient. He should be on parenteral antibiotics through 07/03. This would complete 2 weeks of therapy. The plan is for daptomycin therapy. He will receive this daily at our [facility]. Repeat blood cultures 06/19, drawn at presentation to ED are positive for Enterococcus,Faecalis, pansensitive. Acute urinary retention: PVR 344ml. Patient with hx BPH and states that he is having urinary frequency and hesitancy at home with small volumes of urination, occasional gross hematuria. I think this is acute on chronc retention. Reviewed CT A/P with Dr Lorenzana, urology on 06/19. he is not concerned about the lower pole non obstructive stone- likely is sequela from recent urological procedures and large stone at left renal pelvis. [place] in place. Void trial on 06/22. He has been started on tamsulosin per urology recommendations. He has been able to void without difficulty. Atrial fibrillation: last cardiology note mentions possible ablation procedure, but no record of completion of that. Spoke with patient and he states that he was ready for the ablation and the decision was made not to do it. So that procedure was not completed. This was about February of this year. Eliquis and metoprolol are restarted. CKD stage 3a, GFR 45-59 ml/min: Cr improved with hydration and treatment of his bacteremia. 06/19/25 06/20/25 06/21/25 11:07 05:40 05:30 Creatinine 1.4 H 1.1 1.0 06/22/25 04:51 Creatinine 1.0 Prediabetes: Laboratory Tests 06/20/25 05:40 Hemoglobin A1c % 6.9 H This patient qualifies for diagnosis of diabetes at this time. I would recommend primary care follow-up and discussion of initiation of antihyperglycemic treatment. Controlled familial obstructive sleep apnea: Has home CPAP at bedside. He was complaint with this while admitted. Pacemaker: Not impacting his care at this time, but should be noted that it is present. ALLERGIES Allergies Allergy/AdvReac Type Severity Reaction Status Date / Time albumin colloid, human Allergy Severe Edema Verified 06/19/25 11:44 MEDICATIONS Ambulatory Orders Medication Instructions Recorded Confirmed bupropion HCl 300 mg 24 hr tablet, 300 mg PO DAILY 01/2306/20/25 extended release (Wellbutrin XL) citalopram 10 mg tablet 10 mg PO DAILY 08/07/2306/03 prazosin 1 mg capsule See Rx Instructions .Route 1 10/13/23 06/20/25 .COMPLEX #90 caps alfuzosin 10 mg tablet,extended 10 mg PO HS #30 tabs 0 05/14/25 06/20/25 release 24 hr allopurinol 100 mg tablet 100 mg PO QPM 05/16/2506/20 apixaban 5 mg tablet (Eliquis) 5 mg PO BID 05/16/25 atorvastatin 20 mg tablet 20 mg PO QPM 05/16/25 metoprolol succinate 50 mg 50 mg PO BID 05/16/2506/20 tablet,extended release 24 hr ondansetron 4 mg disintegrating 4 mg PO Q8H PRN nausea and 05/28/25 06/21/25 tablet vomiting #14 tabs gabapentin 100 mg capsule 100 mg PO TID PRN pain 05/2906/21/25 oxycodone-acetaminophen 5 mg-325 1 tab PO Q12H PRN jill n #10 tabs 06/02/25 06/20/25 mg tablet (Percocet) oxycodone 5 mg tablet 5 mg PO Q4H PRN Pain #10 tab s 06/08/25 06/20/25 daptomycin 500 mg/50 mL in 0.9 % 750 mg (75 mL) IV QDA Y 14 days 10/21/25 sodium chloride intravenous piggyback PHYSICAL EXAM AT DISCHARGE Vital Signs: Vital Signs x48h Temp Pulse Resp BP Pulse Ox O2 Flow Rate 06/23/25 10:00 36.6 C 65 16 117/65 96 0 LABS 06/23/25 05:58 06/23/25 05:58 FOLLOW UP Follow Up: Dr Lorenzana, as scheduled Dr You, 7-10 d TIME SPENT Time Spent in Discharge (Minutes): 45 Discharge Plan Discharge Patient Disposition: Home, Self Care Condition: Stable Prescriptions: Continued prazosin 1 mg capsule See Rx Instructions .ROUTE .COMPLEX Qty: 90 3RF Dose Instruction: TAKE 1 CAPSULE BY MOUTH AT BEDTIME Rx Instructions: TAKE 1 CAPSULE BY MOUTH AT BEDTIME alfuzosin 10 mg tablet extended release 24 hr 10 mg PO HS Qty: 30 1RF Rx Instructions: administer after the same meal each day ondansetron 4 mg tablet,disintegrating 4 mg PO Q8H PRN (Reason: nausea and vomiting) Qty: 14 0RF oxycodone-acetaminophen [Percocet] 5-325 mg tablet 1 tab PO Q12H PRN (Reason: pain) Qty: 10 0RF citalopram 10 MG tablet 10 mg PO DAILY bupropion HCl [Wellbutrin XL] 300 MG tablet extended release 24 hr 300 mg PO DAILY atorvastatin 20 mg tablet 20 mg PO QPM metoprolol succinate 50 mg tablet extended release 24 hr 50 mg PO BID allopurinol 100 mg tablet 100 mg PO QPM Eliquis 5 mg tablet 5 mg PO BID gabapentin 100 mg capsule 100 mg PO TID PRN (Reason: pain) Patient Comments: has never started taking yet oxycodone 5 mg tablet 5 mg PO Q4H PRN (Reason: Pain) Qty: 10 0RF Rx Instructions: Take with food. Do Not drive while taking medication. Changed daptomycin in 0.9 % sod chlor 500 mg/50 mL piggyback 750 mg IV QDAY 14 Days Rx Instructions: administer over 30 mins Discontinued ciprofloxacin HCl 500 mg tablet 500 mg PO BID Qty: 14 0RF tamsulosin 0.4 mg capsule 0.4 mg PO Q24H Activity Restrictions: Activity as Tolerated Diet: Diabetic Health Concerns: You came into the hospital feeling weak and tired and it sounds like you have had a very rough several months. You got a urinary tract infection. Your urinary tract infection was caused by Enterococcus faecalis. This is not a drug-resistant bacteria. It is a bacteria that is commonly found in the gastrointestinal tract. It does not belong in the urinary tract. Your urinary tract infection was further complicated by a kidney stone which required several procedures to break it up. Probably in the course of having infected urine and procedures on your urinary tract, bacteria got into your blood. The Enterococcus faecalis is common but not so common that it is killed by the usual urinary tract antibiotics. For this reason the Cipro that you had been on for some time did not help. You came into the hospital and had a thorough workup for bacteria in your blood. The good news is you did not have any evidence of bacterial infection in your heart. Your pacemaker looks fine and everything is going well with that. You have been here for an extra few days getting all of the logistical things done to be able to get IV antibiotics as an outpatient. With everything that you have been through in the past weeks the most prudent course of action is to get IV antibiotics for 2 weeks as an outpatient. We are setting that up and you can go to our outpatient infusion center daily until those are finished. You have a PICC line in place and that can be discontinued at the end of your antibiotic course. There are still yet another set of blood cultures growing to make sure that everything is gone with the antibiotic treatment. Likely you will not hear anything about these which is fine. We will call you if they are positive. Other health concerns this admission include your prediabetes. We tested a hemoglobin A1c this admission and found it to be 6.9%. Your previous hemoglobin A1c reading was 6.4%. This is a slight increase showing that your sugars have been elevated. Your body has also been under a lot of stress. I would recommend that you follow a diabetic diet. I would recommend that you see Dr. You and discuss this test result. I would recommend that the test be repeated in 6 to 12 weeks. When you came into the hospital you were retaining urine in your bladder. This means that you were not completely emptying your bladder when you urinated. We left a catheter in your bladder for several days. We have checked your bladder to make sure you are emptying it and it looks like everything is better. I want you to continue on all of your normal medicines at home. Do not take any more of the Cipro antibiotics. And then we are adding the daptomycin which will be given IV once a day. As we have talked about before. I am sending a copy of this note to Dr. You. Additionally I will be sending a copy of this note to the transition planning nurse in the clinics. Her name is Radha Martinez. My notes will also go to Dr. Lorenzana, your urologist Print Language: Kyrgyz Patient Instructions: ED Bacteremia, Suspected (Adult) Follow-up Care: Kamaljit Lorenzana MD [Provider Admit Priv/Credential, Urology] Viktoria You MD [Primary Care Provider, Family Practice] Referral Note: Appt with Dr You 06/29/25 at 1:00pm (check in at 12:45). Vitals documented within 30 minutes of discharge?: Yes
[2025-06-23 13:20] VITALS: BP 109/67; O2SAT 98
== END 2025-06-23 13:15 | disposition home or self-care (01) | DRG 872 ==
LOC: ED 11:22 → MS2 12:26
PROVIDERS: ADMIT Physician Assistant Medical; ATTEND Physician Assistant Medical
DX: Z79.01 Long term (current) use of anticoagulants; R31.0 Gross hematuria; R53.1 Weakness; D64.9 Anemia, unspecified; K74.60 Unspecified cirrhosis of liver; R78.81 Bacteremia; N18.31 Chronic kidney disease, stage 3a; I95.9 Hypotension, unspecified; Z66 Do not resuscitate; N40.1 Benign prostatic hyperplasia with lower urinary tract symptoms; K70.30 Alcoholic cirrhosis of liver without ascites; N20.0 Calculus of kidney; I49.5 Sick sinus syndrome; I48.20 Chronic atrial fibrillation, unspecified; R35.0 Frequency of micturition; G89.29 Other chronic pain; Z87.442 Personal history of urinary calculi; M10.9 Gout, unspecified; Z87.440 Personal history of urinary (tract) infections; Z95.0 Presence of cardiac pacemaker; G47.33 Obstructive sleep apnea (adult) (pediatric); R33.8 Other retention of urine; R39.11 Hesitancy of micturition; M54.9 Dorsalgia, unspecified; B95.2 Enterococcus as the cause of diseases classified elsewhere; E11.22 Type 2 diabetes mellitus with diabetic chronic kidney disease